=== PATIENT | female | born 1975 | race Caucasian/White ===

== ENCOUNTER 2017-01-30 12:07 | Inpatient (IN) | payer OTHER ==
[2017-01-30 18:50] VITALS: BMI 24.7
--- NOTE | 2017-01-30 20:48 | HP ---
CIWA Score - CIWA Score Nausea/Vomitin-Mild Nausea/No Vomiting Muscle Tremors: 3 Anxiety: 3 Agitation: 3 Paroxysmal Sweats: 1-Minimal Palms Moist Orientation: 3-Disoriented Date>2 days Tacttile Disturbances: 3-Moderate Itch/Numb/Burn Auditory Disturbances: 0-None Visual Disturbances: 0-None Headache: 2-Mild CIWA-Ar Total Score: 19 Admission ROS BHS - HPI Chief Complaint: WITHDRAWAL SX Allergies/Adverse Reactions: Allergies Allergy/AdvReac Type Severity Reaction Status Date / Time fish derived Allergy Verified 01/30/17 20:44 History of Present Illness: 41 YEARS OLD FEMALE WITH LONG HISTORY OF ALCOHOL NICOTINE DEPENDENCE, HAS ASTHMA HYPERTENSION AND DEPRESSION IS ADMITTED TO DETOX Exam Limitations: No Limitations - Ebola screening Have you traveled outside of the country in the last 21 days: No Have you had contact with anyone from an Ebola affected area: No Have you been sick,other than usual withdrawal symptoms: No Do you have a fever: No - Review of Systems Constitutional: Chills, Changes in sleep, Weight Stable EENT: reports: No Symptoms Reported Respiratory: reports: No Symptoms reported Cardiac: reports: No Symptoms Reported GI: reports: Nausea, Poor Fluid Intake, Indigestion, Abdominal cramping : reports: No Symptoms Reported Musculoskeletal: reports: Back Pain, Other (RIGHT GREAT TOE) Integumentary: reports: No Symptoms Reported Neuro: reports: Tremors Endocrine: reports: No Symptoms Reported Hematology: reports: No Symptoms Reported Psychiatric: reports: Judgement Intact, Depressed Other Systems: Reviewed and Negative Patient History - Patient Medical History Hx Anemia: No Hx Asthma: Yes Hx Chronic Obstructive Pulmonary Disease (COPD): No Hx Cancer: No Hx Cardiac Disorders: No Hx Congestive Heart Failure: No Hx Hypertension: Yes Hx Hypercholesterolemia: No HX Cerebrovascular Accident: No Hx Seizures: No Hx Dementia: No Hx Diabetes: No Hx Gastrointestinal Disorders: No Hx Liver Disease: No Hx Genitourinary Disorders: No Hx Sexually Transmitted Disorders: No Hx Renal Disease (ESRD): No Hx Thyroid Disease: No Hx Human Immunodeficiency Virus (HIV): No Hx Hepatitis C: No Hx Depression: Yes Hx Suicide Attempt: No Hx Bipolar Disorder: No Hx Schizophrenia: No - Patient Surgical History Past Surgical History: No - PPD History Previous Implant?: Yes Implanted On Prior R Admission?: No PPD to be Administered?: Yes - Reproductive History Patient is a Female of Child Bearing Age (11 -55 yrs old): Yes Last Menstrual Period: 01/19/17 Patient : No - Smoking Cessation Smoking history: Current every day smoker Have you smoked in the past 12 months: Yes Aproximately how many cigarettes per day: 10 Cigars Per Day: 0 Hx Chewing Tobacco Use: No Initiated information on smoking cessation: Yes 'Breaking Loose' booklet given: 01/30/17 - Substance & Tx. History Hx Alcohol Use: Yes Hx Substance Use: Yes Substance Use Type: Alcohol, Cocaine, Marijuana Hx Substance Use Treatment: Yes - Substances Abused Alcohol Route: Oral Frequency: Daily Amount used: 40OZX4 Age of first use: 19 Date of Last Use: 01/30/17 Family Disease History - Family Disease History Family Disease History: Other: Mother ( RENAL) Admission Physical Exam S - Vital Signs Vital Signs: Vital Signs - 24 hr 01/30/17 18:47 Temperature 97.2 F L Pulse Rate 79 Respiratory 20 Rate Blood Pressure 156/90 - Physical General Appearance: Yes: Nourished, Appropriately Dressed, Moderate Distress, Tremorous, Irritable, Sweating, Anxious HEENTM: Yes: Hearing grossly Normal, Normal ENT Inspection, Normocephalic, Normal Voice Respiratory: Yes: Chest Non-Tender, Lungs Clear, Normal Breath Sounds, No Respiratory Distress, No Accessory Muscle Use Neck: Yes: Supple, Trachea in good position Breast: Yes: Breasts Symetrical Cardiology: Yes: Regular Rhythm, Regular Rate, S1, S2 Abdominal: Yes: Non Tender, Soft Genitourinary: Yes: Within Normal Limits Back: Yes: Normal Inspection Musculoskeletal: Yes: full range of Motion, Gait Steady, Back pain Extremities: Yes: Normal Inspection, Normal Range of Motion, Non-Tender, Tremors Neurological: Yes: Alert, Motor Strength 5/5, Normal Response, Depressed Affect Integumentary: Yes: Warm Lymphatic: Yes: Within Normal Limits - Diagnostic (1) Alcohol dependence with uncomplicated withdrawal Status: Acute (2) Cocaine dependence, uncomplicated Status: Chronic (3) Cannabis dependence, uncomplicated Status: Chronic (4) Asthma Status: Chronic Qualifiers: Asthma severity: mild intermittent Asthma complication type: with status asthmaticus Qualified Code(s): J45.22 - Mild intermittent asthma with status asthmaticus (5) Hypertension Status: Chronic Qualifiers: Hypertension type: essential hypertension Qualified Code(s): I10 - Essential (primary) hypertension (6) Nicotine dependence Status: Acute Qualifiers: Nicotine product type: cigarettes Substance use status: in withdrawal Qualified Code(s): F17.213 - Nicotine dependence, cigarettes, with withdrawal (7) Depression (emotion) Status: Suspected Qualifiers: Depression Type: dysthymia Qualified Code(s): F34.1 - Dysthymic disorder (8) Abrasion, right great toe, sequela Status: Acute Qualifiers: Encounter type: subsequent encounter Qualified Code(s): S90.411D - Abrasion, right great toe, subsequent encounter Comment: AMADA Cleared for Admission S - Detox or Rehab S Level of Care: Medically Managed Detox Regimen/Protocol: Librium S Breath Alcohol Content Breath Alcohol Content: 0 Urine Pregancy Test - Result Urine Test Results: Negative- NO Line Present Urine Drug Screen - Results Drug Screen Negative: No Urine Drug Screen Results: THC-Marijuana, SUZY-Cocaine
[2017-01-30] MEDS ORDERED: P-EPHED 60MG/TRIPROLIDI 2.5MG TABLET PO PRN (20:53)
[2017-01-30] MEDS ORDERED: guaiFENesin/D-METHORPHAN HB 10 ML UNIT-DOSE CUPS PO PRN (20:53)
[2017-01-30] MEDS ORDERED: MAG HYDROX/AL HYDROX/SIMETH 30 ML UNIT-DOSE CUP PO PRN (20:53)
[2017-01-30] MEDS ORDERED: MAGNESIUM CITRATE 300 ML BOTTLE PO PRN (20:53)
[2017-01-30] MEDS ORDERED: chlordiazePOXIDE HCL 25 MG CAPSULE PO ONE (20:53)
[2017-01-30] MEDS ORDERED: MENTHOL/PHENOL 1 EACH UD MM PRN (20:53)
[2017-01-30] MEDS ORDERED: NICOTINE POLACRILEX 2 MG GUM BC PRN (20:53)
[2017-01-30] MEDS ORDERED: MAGNESIUM HYDROX 2400MG/30ML ORAL SUSPENSION 30 ML CUP PO PRN (20:53)
[2017-01-30] MEDS ORDERED: chlordiazePOXIDE HCL 25 MG CAPSULE PO PRN (20:53)
[2017-01-30] MEDS ORDERED: diphenhydrAMINE HCL 50 MG CAPSULE PO PRN (20:53)
[2017-01-30] MEDS ORDERED: LOPERAMIDE HCL 2 MG CAPSULE PO PRN (20:53)
[2017-01-30] MEDS ORDERED: hydrOXYzine PAMOATE 50 MG CAPSULE (FP) PO PRN (20:53)
[2017-01-30] MEDS ORDERED: ACETAMINOPHEN 325 MG TABLET (FP) PO PRN (20:53)
[2017-01-30] MEDS ORDERED: cloNIDine HCL 0.1 MG TABLET PO PRN (20:55)
[2017-01-30] MEDS ORDERED: THIAMINE HCL 100 MG TABLET (FP) PO SCH (22:00)
[2017-01-30] MEDS: chlordiazePOXIDE HCL 25 MG CAPSULE PO SCH (23:14)
[2017-01-30] MEDS: IBUPROFEN 400 MG TABLET (FP) PO PRN (23:18)
[2017-01-31] MEDS: chlordiazePOXIDE HCL 25 MG CAPSULE PO SCH ×3 (05:54→18:20)
[2017-01-31] MEDS: IBUPROFEN 400 MG TABLET (FP) PO PRN (05:56)
[2017-01-31 09:41] LABS: MCHC 33.9 g/dl (32.0-36.0); MEAN CELL VOLUME 91.4 fl (80-96); MEAN PLT VOLUME 10.3 fl (7.5-11.1); PLATELET COUNT 181 K/MM3 (134-434); RDW 13.1 % (11.6-15.6); WHITE BLOOD COUNT 6.8 K/mm3 (4.0-10.0)
[2017-01-31] MEDS ORDERED: NICOTINE 14 MG/24 HOURS TOPICAL PATCH TD SCH (10:00)
[2017-01-31] MEDS ORDERED: PRENATAL VITAMINS W/ FOLIC ACID TABLET (FP) PO SCH (10:00)
--- NOTE | 2017-01-31 10:06 | PN ---
S CIWA - CIWA Score Nausea/Vomitin Muscle Tremors: 3 Anxiety: 3 Agitation: 2 Paroxysmal Sweats: 1-Minimal Palms Moist Orientation: 0-Oriented Tacttile Disturbances: 1-Very Mild Itch/Numbness Auditory Disturbances: 1-Very Mild Visual Disturbances: 1-Very Mild Sensitivity Headache: 2-Mild CIWA-Ar Total Score: 17 BHS Progress Note (SOAP) Subjective: ALERT,IRRITABLE,ANXIOUS,INTERRUPTED SLEEP,TREMOR Objective: 01/31/17 10:04 Vital Signs Temperature 97.3 F L 01/31/17 06:08 Pulse Rate 100 H 01/31/17 06:08 Respiratory Rate 20 01/31/17 06:08 Blood Pressure 146/105 01/31/17 06:08 O2 Sat by Pulse Oximetry (%) EKG NSR,LVH,INTERTED T IN V2 NO CHEST PAIN,NO SOB,NO DIZZINESS Laboratory Last Values WBC 6.8 K/mm3 (4.0-10.0) 01/31/17 06:00 RBC 4.44 M/mm3 (3.60-5.2) 01/31/17 06:00 Hgb 13.8 GM/dL (10.7-15.3) 01/31/17 06:00 Hct 40.6 % (32.4-45.2) 01/31/17 06:00 MCV 91.4 fl (80-96) 01/31/17 06:00 MCHC 33.9 g/dl (32.0-36.0) 01/31/17 06:00 RDW 13.1 % (11.6-15.6) 01/31/17 06:00 Plt Count 181 K/MM3 (134-434) 01/31/17 06:00 MPV 10.3 fl (7.5-11.1) 01/31/17 06:00 LABS PENDING Assessment: 01/31/17 10:06 WITHDRAWAL SYMPTOM Plan: CONTINUE DETOX
[2017-01-31 10:07] LABS: URINE APPEARANCE SLCLOUDY; URINE BILIRUBIN NEGATIVE (NEGATIVE); URINE BLOOD NEGATIVE (NEGATIVE); URINE COLOR YELLOW; URINE GLUCOSE (UA) NEGATIVE (NEGATIVE); URINE KETONE NEGATIVE (NEGATIVE); URINE NITRITE NEGATIVE (NEGATIVE); URINE PROTEIN NEGATIVE (NEGATIVE); URINE UROBILINOGEN NEGATIVE E.U./dl (0.2-1.0)
[2017-01-31 10:58] LABS: URINE LEUK ESTERASE 2+ (NEGATIVE)
[2017-01-31 11:00] LABS: URINE MUCUS RARE; URINE RBC 8 /hpf (0-3); URINE WBC 34 /hpf (3-5)
[2017-01-31 11:06] LABS: ANION GAP 8 (8-16); CO2 26 mmol/L (21-32); GLUCOSE,RANDOM 118 mg/dL (74-106)
[2017-01-31 11:14] LABS: ALK PHOS 117 U/L (45-117); BILIRUBIN,TOTAL 0.4 mg/dL (0.2-1.0); COCKROFT - GAULT 85.4505; SGOT/AST 11 U/L (15-37); SGPT/ALT 16 U/L (12-78); TOT PROT 7.4 g/dl (6.4-8.2)
--- NOTE | 2017-01-31 13:09 | EKG ---
Test Reason : Blood Pressure : / mmHG Vent. Rate : 084 BPM Atrial Rate : 084 BPM P-R Int : 138 ms QRS Dur : 096 ms QT Int : 456 ms P-R-T Axes : 064 067 079 degrees QTc Int : 538 ms NORMAL SINUS RHYTHM POSSIBLE LEFT ATRIAL ENLARGEMENT LEFT VENTRICULAR HYPERTROPHY PROLONGED QT ABNORMAL ECG NO PREVIOUS ECGS AVAILABLE Confirmed by LINDA MARTIN, SANTIAGO ([id number]) on 01/31/2017 1:09:32 PM Referred By: Confirmed By:SANTIAGO MCKEON MD
[2017-01-31 13:53] VITALS: BP 142/79; PULSE 88; TEMP 98.1
--- NOTE | 2017-01-31 14:03 | CONSULT ---
[facility] Psychiatric Consult - Data Date of interview: 01/31/17 Admission source: [facility] Identifying data: First admission to [facility] for this 41 y/o female seeking detox treatment for alcohol,cocaine and marijuana dependence.Patient is single,a mother of four,homeless,unemployed and deprived of any source of income. Substance Abuse History: - Smoking Cessation. Smoking history: Current every day smoker. Have you smoked in the past 12 months: Yes. Aproximately how many cigarettes per day: 10. Cigars Per Day: 0. Hx Chewing Tobacco Use: No. Initiated information on smoking cessation: Yes. 'Breaking Loose' booklet given : 01/30/17. - Substance & Tx. History. Hx Alcohol Use: Yes. Hx Substance Use : Yes. Substance Use Type: Alcohol, Cocaine, Marijuana. Hx Substance Use Treatment: Yes. - Substances Abused. Alcohol. Route: Oral. Frequency: Daily. Amount used: 40OZX4. Age of first use: 19. Date of Last Use: . Confirmed by patient. Medical History: Bronchial asthma and hypertension. Psychiatric History: Patient denies. Physical/Sexual Abuse/Trauma History: No history. Additional Comment: Urine Drug Screen Results: THC-Marijuana, SUZY-Cocaine.Noted. Mental Status Exam - Mental Status Exam Alert and Oriented to: Time, Place, Person Cognitive Function: Good Patient Appearance: Well Groomed Mood: Withdrawn, Anxious, Apprehensive Affect: Constricted Patient Behavior: Fatigued, Appropriate, Cooperative Speech Pattern: Clear (bilingual) Voice Loudness: Normal Thought Process: Goal Oriented Thought Disorder: Not Present Hallucinations: Denies Suicidal Ideation: Denies Homicidal Ideation: Denies Insight/Judgement: Poor Sleep: Poorly, Difficulty falling asleep Appetite: Good Muscle strength/Tone: Normal Gait/Station: Normal Psychiatric Findings - Problem List ([place] 1, 2,3) (1) Alcohol dependence with uncomplicated withdrawal Current Visit: Yes Status: Acute (2) Cannabis dependence, uncomplicated Current Visit: Yes Status: Chronic (3) Cocaine dependence, uncomplicated Current Visit: Yes Status: Chronic (4) Nicotine dependence Current Visit: Yes Status: Acute Qualifiers: Nicotine product type: cigarettes Substance use status: in withdrawal Qualified Code(s): F17.213 - Nicotine dependence, cigarettes, with withdrawal (5) Substance induced mood disorder Current Visit: Yes Status: Acute (6) Asthma Current Visit: Yes Status: Chronic Qualifiers: Asthma severity: mild intermittent Asthma complication type: with status asthmaticus Qualified Code(s): J45.22 - Mild intermittent asthma with status asthmaticus (7) Hypertension Current Visit: Yes Status: Chronic Qualifiers: Hypertension type: essential hypertension Qualified Code(s): I10 - Essential (primary) hypertension (8) Insomnia Current Visit: Yes Status: Acute - Initial Treatment Plan Initial Treatment Plan: Psychoeducation.Detoxification.Insomnia is addressed with benadryl 50 mg po at bedtime.Brief discussion of side effects/ benefits.Patient agrees with this careplan.Observation.
--- NOTE | 2017-01-31 18:01 | DS ---
[facility] Detox Discharge Summary Admission Date: 01/30/17 Discharge Date: 01/31/17 - History Present History: Alcohol Dependence, Cannabis Dependence, Cocaine Dependence - Physical Exam Results Vital Signs: Vital Signs Temperature 98.1 F 01/31/17 13:52 Pulse Rate 88 01/31/17 13:52 Respiratory Rate 16 01/31/17 13:52 Blood Pressure 142/79 01/31/17 13:52 O2 Sat by Pulse Oximetry (%) - Treatment Hospital Course: Detox Protocol Followed - Medication Discharge Medications: Ambulatory Orders Albuterol Sulfate Inhaler - [Ventolin Hfa Inhaler -] 2 inh PO Q6H 01/30/17 - Diagnosis (1) Alcohol dependence with uncomplicated withdrawal Current Visit: Yes Status: Acute (2) Nicotine dependence Current Visit: Yes Status: Acute Qualifiers: Nicotine product type: cigarettes Substance use status: in withdrawal Qualified Code(s): F17.213 - Nicotine dependence, cigarettes, with withdrawal (3) Asthma Current Visit: Yes Status: Chronic Qualifiers: Asthma severity: mild intermittent Asthma complication type: with status asthmaticus Qualified Code(s): J45.22 - Mild intermittent asthma with status asthmaticus (4) Cannabis dependence, uncomplicated Current Visit: Yes Status: Chronic (5) Cocaine dependence, uncomplicated Current Visit: Yes Status: Chronic - AMA Did Patient Leave Against Medical Advice: Yes (want to leave unit )
[2017-01-31] MEDS ORDERED: chlordiazePOXIDE HCL 25 MG CAPSULE PO SCH (23:00)
[2017-02-01] MEDS ORDERED: chlordiazePOXIDE 5 MG CAPSULE PO SCH (23:00)
[2017-02-02] MEDS ORDERED: chlordiazePOXIDE HCL 10 MG CAPSULE PO SCH (23:00)
== END 2017-01-31 17:50 | disposition left against medical advice (07) | DRG 770 ==
LOC: YASAS 12:07 → Y6N 21:13
PROVIDERS: ADMIT Internal Medicine Addiction Medicine; ATTEND Internal Medicine Addiction Medicine
PROC: HZ2ZZZZ Detoxification Services for Substance Abuse Treatment (ICD-10-PCS; principal; 2017-01-30)
DX: F10.230 Alcohol dependence with withdrawal, uncomplicated (principal); F14.20 Cocaine dependence, uncomplicated; F12.20 Cannabis dependence, uncomplicated; F17.210 Nicotine dependence, cigarettes, uncomplicated; F19.24 Other psychoactive substance dependence with psychoactive substance-induced mood disorder; J45.22 Mild intermittent asthma with status asthmaticus; I10 Essential (primary) hypertension; G47.00 Insomnia, unspecified; S90.411D Abrasion, right great toe, subsequent encounter; X58.XXXD Exposure to other specified factors, subsequent encounter
CPT/HCPCS: 36415; 80053; 81003; 81015; 85027; 86593; 93005; 93010

== ENCOUNTER 2018-02-26 15:12 | Inpatient (IN) | payer OTHER ==
[2018-02-26 17:01] VITALS: BMI 25.3
--- NOTE | 2018-02-26 19:45 | HP ---
CIWA Score - CIWA Score Nausea/Vomitin-No Nausea/No Vomiting Muscle Tremors: 4-Moderate,w/Arms Extend Anxiety: 3 Agitation: 4-Moderately Restless Paroxysmal Sweats: 4-Forehead w/Sweat Beads Orientation: 0-Oriented Tacttile Disturbances: 1-Very Mild Itch/Numbness (On arms and body since starting withdrawal) Auditory Disturbances: 0-None Visual Disturbances: 0-None Headache: 0-None Present CIWA-Ar Total Score: 16 Admission ROS S - HPI Chief Complaint: Here for alcohol and cocaine withdrawal. Allergies/Adverse Reactions: Allergies Allergy/AdvReac Type Severity Reaction Status Date / Time fish derived Allergy Verified 01/30/17 20:44 History of Present Illness: Started drinking alcohol at age 19 and now drinks 1 pint per day. Started crack/ cocaine use at age 36. Smokes 1/2 to 1 PPD - started at age 19. Hx. asthma. Occ blood pressure increases and takes hydrochlorothiazide as needed. Denies other health problems. Hx.marijuana use but not recently. Had one detox attempt in past but stayed less than 24 hours. - Ebola screening Have you traveled outside of the country in the last 21 days: No Have you had contact with anyone from an Ebola affected area: No Have you been sick,other than usual withdrawal symptoms: No Do you have a fever: No - Review of Systems Constitutional: Diaphoresis, Changes in sleep (Difficulty falling and staying asleep x 3 years.) EENT: reports: No Symptoms Reported Respiratory: reports: Wheezing (Hx. asthma. Had wheezing this am. Left pump at home.) Cardiac: reports: Other (Occ. elevated blood pressure) GI: reports: No Symptoms Reported : reports: No Symptoms Reported Musculoskeletal: reports: Back Pain (Occ back pain r/t sciatica.) Integumentary: reports: No Symptoms Reported Neuro: reports: No Symptoms reported Endocrine: reports: No Symptoms Reported Hematology: reports: No Symptoms Reported Psychiatric: reports: Orientated x3, Agitated (r/t withdrawal), Anxious (r/t withdrawal) Patient History - Patient Medical History Hx Anemia: No Hx Asthma: Yes (triggered by cold weather, hot weather, humidity, duct) Hx Chronic Obstructive Pulmonary Disease (COPD): No Hx Cancer: No Hx Cardiac Disorders: No Hx Congestive Heart Failure: No Hx Hypertension: Yes (rx'd w/ HCTZ) Hx Hypercholesterolemia: No HX Cerebrovascular Accident: No Hx Seizures: No Hx Dementia: No Hx Diabetes: No Hx Gastrointestinal Disorders: No Hx Liver Disease: No Hx Genitourinary Disorders: No Hx Sexually Transmitted Disorders: No Hx Renal Disease (ESRD): No Hx Thyroid Disease: No Hx Human Immunodeficiency Virus (HIV): No Hx Hepatitis C: No Hx Depression: No (Denies depression. Denies suicide/violent ideation.) Hx Suicide Attempt: No Hx Bipolar Disorder: No Hx Schizophrenia: No - Patient Surgical History Past Surgical History: No Hx Neurologic Surgery: No Hx Cataract Extraction: No Hx Cardiac Surgery: No Hx Lung Surgery: No Hx Breast Surgery: No Hx Breast Biopsy: No Hx Abdominal Surgery: No Hx Appendectomy: No Hx Cholecystectomy: No Hx Genitourinary Surgery: No Hx Section: No Hx Orthopedic Surgery: No Anesthesia Reaction: No - PPD History Previous Implant?: Yes Documented Results: Negative w/o proof Date: 02/01/17 PPD to be Administered?: Yes - Reproductive History Patient is a Female of Child Bearing Age (11 -55 yrs old): Yes Last Menstrual Period: 01/19/18 (Sexually active) Patient : No - Smoking Cessation Smoking history: Current every day smoker Have you smoked in the past 12 months: Yes Aproximately how many cigarettes per day: 10 Cigars Per Day: 0 Hx Chewing Tobacco Use: No Initiated information on smoking cessation: Yes 'Breaking Loose' booklet given: 02/26/18 - Substance & Tx. History Hx Alcohol Use: Yes Hx Substance Use: Yes Substance Use Type: Alcohol, Cocaine Hx Substance Use Treatment: Yes (Detox admission for less than 24 hours) - Substances Abused Alcohol Route: Oral Frequency: Daily Amount used: LIQUOR- 1 PINT Age of first use: 19 Date of Last Use: 02/26/18 (middle of night) Crack Route: Smoking Frequency: Daily Amount used: $150 Age of first use: 36 Date of Last Use: 02/26/18 (middle of night) Family Disease History - Family Disease History Family Disease History: Other: Mother ( RENAL) Admission Physical Exam BHS - Vital Signs Vital Signs: Vital Signs - 24 hr 02/26/18 16:58 Temperature 98.5 F Pulse Rate 83 Respiratory 18 Rate Blood Pressure 157/95 - Physical General Appearance: Yes: Moderate Distress, Tremorous, Sweating, Anxious HEENTM: Yes: EOMI, Hearing grossly Normal, Normal Voice, ZOE, Other ( Perforated nasal septum.) Respiratory: Yes: Lungs Clear, Normal Breath Sounds Neck: Yes: No masses,lesions,Nodules Breast: Yes: Breast Exam Deferred Cardiology: Yes: Regular Rhythm, S1, S2, Tachycardia Abdominal: Yes: Normal Bowel Sounds, Non Tender, Soft Genitourinary: Yes: Within Normal Limits Back: Yes: Normal Inspection Musculoskeletal: Yes: full range of Motion, Gait Steady Extremities: Yes: Normal Capillary Refill, Normal Inspection, Normal Range of Motion Neurological: Yes: Fully Oriented, Alert, Motor Strength 5/5 Integumentary: Yes: Normal Color, Dry (Dry skin and mucous membranes.) - Diagnostic (1) Alcohol dependence with uncomplicated withdrawal Current Visit: Yes Status: Acute (2) Insomnia Current Visit: Yes Status: Chronic Qualifiers: Insomnia type: unspecified Qualified Code(s): G47.00 - Insomnia, unspecified (3) Nicotine dependence Current Visit: Yes Status: Acute Qualifiers: Nicotine product type: cigarettes Substance use status: in withdrawal Qualified Code(s): F17.213 - Nicotine dependence, cigarettes, with withdrawal (4) Asthma Current Visit: Yes Status: Chronic Qualifiers: Asthma severity: unspecified severity Asthma complication type: uncomplicated (5) Cannabis dependence, uncomplicated Current Visit: No Status: Chronic (6) Cocaine dependence, uncomplicated Current Visit: Yes Status: Acute (7) Hypertension Current Visit: Yes Status: Chronic Qualifiers: Hypertension type: unspecified Qualified Code(s): I10 - Essential (primary ) hypertension (8) Dehydration Current Visit: Yes Status: Acute Cleared for Admission [facility] - Detox or Rehab [facility] Level of Care: Medically Managed Detox Regimen/Protocol: Librium [facility] Breath Alcohol Content Breath Alcohol Content: 0 Urine Pregancy Test - Result Urine Test Results: Negative- NO Line Present Urine Drug Screen - Results Drug Screen Negative: No Urine Drug Screen Results: SUZY-Cocaine
[2018-02-26] MEDS ORDERED: guaiFENesin/D-METHORPHAN HB 10 ML UNIT-DOSE CUPS PO PRN (19:59)
[2018-02-26] MEDS ORDERED: NICOTINE POLACRILEX 2 MG GUM BUC PRN (19:59)
[2018-02-26] MEDS ORDERED: MAGNESIUM CITRATE 300 ML BOTTLE PO PRN (19:59)
[2018-02-26] MEDS ORDERED: P-EPHED 60MG/TRIPROLIDI 2.5MG TABLET PO PRN (19:59)
[2018-02-26] MEDS ORDERED: MAGNESIUM HYDROX 2400MG/30ML ORAL SUSPENSION 30 ML CUP PO PRN (19:59)
[2018-02-26] MEDS ORDERED: MAG HYDROX/AL HYDROX/SIMETH 30 ML UNIT-DOSE CUP PO PRN (19:59)
[2018-02-26] MEDS ORDERED: MENTHOL/PHENOL 1 EACH UD MM PRN (19:59)
[2018-02-26] MEDS ORDERED: hydrOXYzine PAMOATE 50 MG CAPSULE (FP) PO PRN (19:59)
[2018-02-26] MEDS ORDERED: LOPERAMIDE HCL 2 MG CAPSULE PO PRN (19:59)
[2018-02-26] MEDS ORDERED: ACETAMINOPHEN 325 MG TABLET (FP) PO PRN (20:13)
[2018-02-26] MEDS ORDERED: chlordiazePOXIDE HCL 25 MG CAPSULE PO PRN (20:14)
[2018-02-26] MEDS ORDERED: ALBUTEROL SO4 18 GM HFA INHALER IH SCH (20:15)
[2018-02-26] MEDS ORDERED: ALBUTEROL SO4 18 GM HFA INHALER IH PRN (20:18)
[2018-02-26] MEDS ORDERED: chlordiazePOXIDE HCL 25 MG CAPSULE PO ONE (20:45)
[2018-02-26] MEDS ORDERED: MELATONIN 5 MG TABLETS PO PRN (22:00)
[2018-02-26] MEDS: chlordiazePOXIDE HCL 25 MG CAPSULE PO SCH (22:32)
[2018-02-26] MEDS: THIAMINE HCL 100 MG TABLET (FP) PO SCH (22:32)
[2018-02-27 00:04] LABS: URINE APPEARANCE CLEAR; URINE BILIRUBIN NEGATIVE (<2.0 mg/dL); URINE COLOR YELLOW; URINE GLUCOSE (UA) NEGATIVE (NEGATIVE); URINE KETONE NEGATIVE (NEGATIVE); URINE LEUK ESTERASE TRACE (NEGATIVE); URINE NITRITE NEGATIVE (NEGATIVE); URINE PROTEIN NEGATIVE (NEGATIVE)
[2018-02-27 00:42] LABS: EPI CELLS FEW /HPF (FEW); URINE MUCUS RARE
[2018-02-27] MEDS: chlordiazePOXIDE HCL 25 MG CAPSULE PO SCH ×4 (06:02→22:22)
[2018-02-27 10:19] LABS: HEMATOCRIT 36.4 % (32.4-45.2); HEMOGLOBIN 12.5 GM/dL (10.7-15.3); MCH 31.3 pg (25.7-33.7); MCHC 34.3 g/dl (32.0-36.0); MEAN CELL VOLUME 91.1 fl (80-96); PLATELET COUNT 179 K/MM3 (134-434); RDW 13.1 % (11.6-15.6); WHITE BLOOD COUNT 5.2 K/mm3 (4.0-10.0)
[2018-02-27 10:26] LABS: CHLORIDE 111 mmol/L (98-107); SODIUM 144 mmol/L (136-145)
[2018-02-27] MEDS: HYDROCHLOROTHIAZIDE 12.5 MG CAPSULE (FP) PO SCH (10:34)
[2018-02-27] MEDS: PRENATAL VITAMINS W/ FOLIC ACID TABLET (FP) PO SCH (10:34)
[2018-02-27] MEDS: NICOTINE 21 MG/24 HOURS TOPICAL PATCH TD SCH (10:35)
[2018-02-27 10:49] LABS: ALBUMIN 3.5 g/dl (3.4-5.0); ALK PHOS 123 U/L (45-117); ANION GAP 10 (8-16); BILIRUBIN,TOTAL 0.2 mg/dL (0.2-1.0); BLOOD UREA NITROGEN 19 mg/dL (7-18); CALCIUM 8.2 mg/dL (8.5-10.1); CO2 23 mmol/L (21-32); GLUCOSE,RANDOM 107 mg/dL (74-106); SGOT/AST 7 U/L (15-37); SGPT/ALT 11 U/L (12-78); TOT PROT 6.3 g/dl (6.4-8.2)
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
--- NOTE | 2018-02-27 11:59 | EKG ---
Test Reason : Blood Pressure : / mmHG Vent. Rate : 086 BPM Atrial Rate : 086 BPM P-R Int : 140 ms QRS Dur : 096 ms QT Int : 424 ms P-R-T Axes : 049 057 058 degrees QTc Int : 507 ms NORMAL SINUS RHYTHM VOLTAGE CRITERIA FOR LEFT VENTRICULAR HYPERTROPHY PROLONGED QT ABNORMAL ECG WHEN COMPARED WITH ECG OF 26-FEB-2018 21:18, NO SIGNIFICANT CHANGE WAS FOUND Confirmed by MD RYAN, LEMUEL ([id number]) on 02/27/2018 11:59:22 AM Referred By: Confirmed By:LEMUEL DAVIS MD
--- NOTE | 2018-02-27 12:01 | EKG ---
Test Reason : Blood Pressure : / mmHG Vent. Rate : 076 BPM Atrial Rate : 076 BPM P-R Int : 140 ms QRS Dur : 092 ms QT Int : 464 ms P-R-T Axes : 051 060 069 degrees QTc Int : 522 ms NORMAL SINUS RHYTHM PROLONGED QT ABNORMAL ECG Confirmed by MD RYAN, LEMUEL ([id number]) on 02/27/2018 12:00:35 PM Referred By: Confirmed By:LEMUEL DAVIS MD
--- NOTE | 2018-02-27 12:16 | PN ---
[facility] CIWA - CIWA Score Nausea/Vomitin-Mild Nausea/No Vomiting Muscle Tremors: 4-Moderate,w/Arms Extend Anxiety: 4-Mod. Anxious/Guarded Agitation: 4-Moderately Restless Paroxysmal Sweats: 1-Minimal Palms Moist Orientation: 0-Oriented Tacttile Disturbances: 0-None Auditory Disturbances: 0-None Visual Disturbances: 0-None Headache: 0-None Present CIWA-Ar Total Score: 14 [facility] Progress Note (SOAP) Subjective: sweat tremor trouble sleep at night anxiety restlessness Objective: 02/27/18 12:15 Vital Signs Temperature 98.1 F 02/27/18 09:07 Pulse Rate 99 H 02/27/18 09:07 Respiratory Rate 20 02/27/18 09:07 Blood Pressure 157/80 02/27/18 09:07 O2 Sat by Pulse Oximetry (%) Laboratory Last Values WBC 5.2 K/mm3 (4.0-10.0) 02/27/18 07:00 RBC 4.00 M/mm3 (3.60-5.2) 02/27/18 07:00 Hgb 12.5 GM/dL (10.7-15.3) 02/27/18 07:00 Hct 36.4 % (32.4-45.2) 02/27/18 07:00 MCV 91.1 fl (80-96) 02/27/18 07:00 MCH 31.3 pg (25.7-33.7) 02/27/18 07:00 MCHC 34.3 g/dl (32.0-36.0) 02/27/18 07:00 RDW 13.1 % (11.6-15.6) 02/27/18 07:00 Plt Count 179 K/MM3 (134-434) 02/27/18 07:00 MPV 9.0 fl (7.5-11.1) D 02/27/18 07:00 Sodium 144 mmol/L (136-145) 02/27/18 07:00 Potassium 4.0 mmol/L (3.5-5.1) 02/27/18 07:00 Chloride 111 mmol/L (98-107) H 02/27/18 07:00 Carbon Dioxide 23 mmol/L (21-32) 02/27/18 07:00 Anion Gap 10 (8-16) 02/27/18 07:00 BUN 19 mg/dL (7-18) H 02/27/18 07:00 Creatinine 1.0 mg/dL (0.55-1.02) 02/27/18 07:00 Creat Clearance w eGFR > 60 (>60) 02/27/18 07:00 Random Glucose 107 mg/dL (74-106) H 02/27/18 07:00 Calcium 8.2 mg/dL (8.5-10.1) L 02/27/18 07:00 Total Bilirubin 0.2 mg/dL (0.2-1.0) D 02/27/18 07:00 AST 7 U/L (15-37) L 02/27/18 07:00 ALT 11 U/L (12-78) L 02/27/18 07:00 Alkaline Phosphatase 123 U/L (45-117) H 02/27/18 07:00 Total Protein 6.3 g/dl (6.4-8.2) L 02/27/18 07:00 Albumin 3.5 g/dl (3.4-5.0) 02/27/18 07:00 Urine Color Yellow 02/26/18 23:50 Urine Appearance Clear 02/26/18 23:50 Urine pH 6.0 (5.0-8.0) 02/26/18 23:50 Ur Specific [place] 1.028 (1.001-1.035) 02/26/18 23:50 Urine Protein Negative (NEGATIVE) 02/26/18 23:50 Urine Glucose (UA) Negative (NEGATIVE) 02/26/18 23:50 Urine Ketones Negative (NEGATIVE) 02/26/18 23:50 Urine Blood Negative (NEGATIVE) 02/26/18 23:50 Urine Nitrite Negative (NEGATIVE) 02/26/18 23:50 Urine Bilirubin Negative (<2.0 mg/dL) 02/26/18 23:50 Urine Urobilinogen 2.0 mg/dL (0.2-1.0) H 02/26/18 23:50 Ur Leukocyte Esterase Trace (NEGATIVE) 02/26/18 23:50 Urine WBC (Auto) 9 /hpf (3-5) 02/26/18 23:50 Urine RBC (Auto) 5 /hpf (0-3) 02/26/18 23:50 Ur Epithelial Cells Few /HPF (FEW) 02/26/18 23:50 Urine Mucus Rare 02/26/18 23:50 RPR Titer Nonreactive (NONREACTIVE) 02/27/18 07:00 lab noted Assessment: 02/27/18 12:16 withdrawal sx Plan: continue detox
[2018-02-27] MEDS: THIAMINE HCL 100 MG TABLET (FP) PO SCH (22:22)
[2018-02-27] MEDS: amLODIPine BESYLATE 5 MG TABLET (FP) PO SCH (22:22)
[2018-02-28] MEDS: chlordiazePOXIDE HCL 25 MG CAPSULE PO SCH ×3 (05:42→17:26)
[2018-02-28] MEDS: PRENATAL VITAMINS W/ FOLIC ACID TABLET (FP) PO SCH (11:08)
[2018-02-28] MEDS: amLODIPine BESYLATE 5 MG TABLET (FP) PO SCH ×2 (11:08→22:44)
[2018-02-28] MEDS: HYDROCHLOROTHIAZIDE 12.5 MG CAPSULE (FP) PO SCH (11:08)
[2018-02-28] MEDS: NICOTINE 21 MG/24 HOURS TOPICAL PATCH TD SCH (11:08)
--- NOTE | 2018-02-28 12:29 | PN ---
S CIWA - CIWA Score Nausea/Vomitin-Mild Nausea/No Vomiting Muscle Tremors: 4-Moderate,w/Arms Extend Anxiety: 3 Agitation: 3 Paroxysmal Sweats: 1-Minimal Palms Moist Orientation: 0-Oriented Tacttile Disturbances: 0-None Auditory Disturbances: 0-None Visual Disturbances: 0-None Headache: 0-None Present CIWA-Ar Total Score: 12 [facility] Progress Note (SOAP) Subjective: sweat tremor restlessness cold chill hot Objective: 02/28/18 12:29 Vital Signs Temperature 98.1 F 02/28/18 10:29 Pulse Rate 95 H 02/28/18 10:29 Respiratory Rate 18 02/28/18 10:29 Blood Pressure 128/71 02/28/18 10:29 O2 Sat by Pulse Oximetry (%) Laboratory Last Values WBC 5.2 K/mm3 (4.0-10.0) 02/27/18 07:00 RBC 4.00 M/mm3 (3.60-5.2) 02/27/18 07:00 Hgb 12.5 GM/dL (10.7-15.3) 02/27/18 07:00 Hct 36.4 % (32.4-45.2) 02/27/18 07:00 MCV 91.1 fl (80-96) 02/27/18 07:00 MCH 31.3 pg (25.7-33.7) 02/27/18 07:00 MCHC 34.3 g/dl (32.0-36.0) 02/27/18 07:00 RDW 13.1 % (11.6-15.6) 02/27/18 07:00 Plt Count 179 K/MM3 (134-434) 02/27/18 07:00 MPV 9.0 fl (7.5-11.1) D 02/27/18 07:00 Sodium 144 mmol/L (136-145) 02/27/18 07:00 Potassium 4.0 mmol/L (3.5-5.1) 02/27/18 07:00 Chloride 111 mmol/L (98-107) H 02/27/18 07:00 Carbon Dioxide 23 mmol/L (21-32) 02/27/18 07:00 Anion Gap 10 (8-16) 02/27/18 07:00 BUN 19 mg/dL (7-18) H 02/27/18 07:00 Creatinine 1.0 mg/dL (0.55-1.02) 02/27/18 07:00 Creat Clearance w eGFR > 60 (>60) 02/27/18 07:00 Random Glucose 107 mg/dL (74-106) H 02/27/18 07:00 Calcium 8.2 mg/dL (8.5-10.1) L 02/27/18 07:00 Total Bilirubin 0.2 mg/dL (0.2-1.0) D 02/27/18 07:00 AST 7 U/L (15-37) L 02/27/18 07:00 ALT 11 U/L (12-78) L 02/27/18 07:00 Alkaline Phosphatase 123 U/L (45-117) H 02/27/18 07:00 Total Protein 6.3 g/dl (6.4-8.2) L 02/27/18 07:00 Albumin 3.5 g/dl (3.4-5.0) 02/27/18 07:00 Urine Color Yellow 02/26/18 23:50 Urine Appearance Clear 02/26/18 23:50 Urine pH 6.0 (5.0-8.0) 02/26/18 23:50 Ur Specific [place] 1.028 (1.001-1.035) 02/26/18 23:50 Urine Protein Negative (NEGATIVE) 02/26/18 23:50 Urine Glucose (UA) Negative (NEGATIVE) 02/26/18 23:50 Urine Ketones Negative (NEGATIVE) 02/26/18 23:50 Urine Blood Negative (NEGATIVE) 02/26/18 23:50 Urine Nitrite Negative (NEGATIVE) 02/26/18 23:50 Urine Bilirubin Negative (<2.0 mg/dL) 02/26/18 23:50 Urine Urobilinogen 2.0 mg/dL (0.2-1.0) H 02/26/18 23:50 Ur Leukocyte Esterase Trace (NEGATIVE) 02/26/18 23:50 Urine WBC (Auto) 9 /hpf (3-5) 02/26/18 23:50 Urine RBC (Auto) 5 /hpf (0-3) 02/26/18 23:50 Ur Epithelial Cells Few /HPF (FEW) 02/26/18 23:50 Urine Mucus Rare 02/26/18 23:50 RPR Titer Nonreactive (NONREACTIVE) 02/27/18 07:00 lab noted Assessment: 02/28/18 12:30 withdrawal ax Plan: continue detox
[2018-02-28] MEDS: chlordiazePOXIDE 5 MG CAPSULE PO SCH (22:44)
[2018-02-28] MEDS: THIAMINE HCL 100 MG TABLET (FP) PO SCH (22:44)
[2018-02-28] MEDS ORDERED: diphenhydrAMINE HCL 25 MG CAPSULE (FP) PO ONE (22:49)
[2018-02-28] MEDS: diphenhydrAMINE HCL 50 MG CAPSULE PO PRN (22:50)
[2018-03-01] MEDS: chlordiazePOXIDE 5 MG CAPSULE PO SCH ×3 (05:59→18:11)
[2018-03-01] MEDS: PRENATAL VITAMINS W/ FOLIC ACID TABLET (FP) PO SCH (10:56)
[2018-03-01] MEDS: HYDROCHLOROTHIAZIDE 12.5 MG CAPSULE (FP) PO SCH (10:56)
[2018-03-01] MEDS: NICOTINE 21 MG/24 HOURS TOPICAL PATCH TD SCH (10:57)
[2018-03-01] MEDS: amLODIPine BESYLATE 5 MG TABLET (FP) PO SCH ×2 (10:57→22:30)
[2018-03-01] MEDS ORDERED: ONDANSETRON *ODT* 4 MG TABLET SL ONE (11:03)
--- NOTE | 2018-03-01 13:11 | PN ---
[facility] Progress Note (SOAP) Subjective: feeling better less sweat no tremor sleep better at night social with peers in day room Objective: 03/01/18 13:10 Vital Signs Temperature 97.9 F 03/01/18 10:29 Pulse Rate 87 03/01/18 10:29 Respiratory Rate 18 03/01/18 10:29 Blood Pressure 132/68 03/01/18 10:29 O2 Sat by Pulse Oximetry (%) Laboratory Last Values WBC 5.2 K/mm3 (4.0-10.0) 02/27/18 07:00 RBC 4.00 M/mm3 (3.60-5.2) 02/27/18 07:00 Hgb 12.5 GM/dL (10.7-15.3) 02/27/18 07:00 Hct 36.4 % (32.4-45.2) 02/27/18 07:00 MCV 91.1 fl (80-96) 02/27/18 07:00 MCH 31.3 pg (25.7-33.7) 02/27/18 07:00 MCHC 34.3 g/dl (32.0-36.0) 02/27/18 07:00 RDW 13.1 % (11.6-15.6) 02/27/18 07:00 Plt Count 179 K/MM3 (134-434) 02/27/18 07:00 MPV 9.0 fl (7.5-11.1) D 02/27/18 07:00 Sodium 144 mmol/L (136-145) 02/27/18 07:00 Potassium 4.0 mmol/L (3.5-5.1) 02/27/18 07:00 Chloride 111 mmol/L (98-107) H 02/27/18 07:00 Carbon Dioxide 23 mmol/L (21-32) 02/27/18 07:00 Anion Gap 10 (8-16) 02/27/18 07:00 BUN 19 mg/dL (7-18) H 02/27/18 07:00 Creatinine 1.0 mg/dL (0.55-1.02) 02/27/18 07:00 Creat Clearance w eGFR > 60 (>60) 02/27/18 07:00 Random Glucose 107 mg/dL (74-106) H 02/27/18 07:00 Calcium 8.2 mg/dL (8.5-10.1) L 02/27/18 07:00 Total Bilirubin 0.2 mg/dL (0.2-1.0) D 02/27/18 07:00 AST 7 U/L (15-37) L 02/27/18 07:00 ALT 11 U/L (12-78) L 02/27/18 07:00 Alkaline Phosphatase 123 U/L (45-117) H 02/27/18 07:00 Total Protein 6.3 g/dl (6.4-8.2) L 02/27/18 07:00 Albumin 3.5 g/dl (3.4-5.0) 02/27/18 07:00 Urine Color Yellow 02/26/18 23:50 Urine Appearance Clear 02/26/18 23:50 Urine pH 6.0 (5.0-8.0) 02/26/18 23:50 Ur Specific [place] 1.028 (1.001-1.035) 02/26/18 23:50 Urine Protein Negative (NEGATIVE) 02/26/18 23:50 Urine Glucose (UA) Negative (NEGATIVE) 02/26/18 23:50 Urine Ketones Negative (NEGATIVE) 02/26/18 23:50 Urine Blood Negative (NEGATIVE) 02/26/18 23:50 Urine Nitrite Negative (NEGATIVE) 02/26/18 23:50 Urine Bilirubin Negative (<2.0 mg/dL) 02/26/18 23:50 Urine Urobilinogen 2.0 mg/dL (0.2-1.0) H 02/26/18 23:50 Ur Leukocyte Esterase Trace (NEGATIVE) 02/26/18 23:50 Urine WBC (Auto) 9 /hpf (3-5) 02/26/18 23:50 Urine RBC (Auto) 5 /hpf (0-3) 02/26/18 23:50 Ur Epithelial Cells Few /HPF (FEW) 02/26/18 23:50 Urine Mucus Rare 02/26/18 23:50 RPR Titer Nonreactive (NONREACTIVE) 02/27/18 07:00 lab noted Assessment: 03/01/18 13:10 mild withdrawal sx Plan: medically supervised detox
[2018-03-01] MEDS: IBUPROFEN 400 MG TABLET (FP) PO PRN (18:47)
[2018-03-01] MEDS: THIAMINE HCL 100 MG TABLET (FP) PO SCH (22:30)
[2018-03-01] MEDS: chlordiazePOXIDE HCL 10 MG CAPSULE PO SCH (22:31)
[2018-03-01] MEDS: diphenhydrAMINE HCL 50 MG CAPSULE PO PRN (22:32)
[2018-03-01] MEDS ORDERED: diphenhydrAMINE HCL 25 MG CAPSULE (FP) PO ONE (22:32)
[2018-03-02] MEDS: chlordiazePOXIDE HCL 10 MG CAPSULE PO SCH ×2 (06:00→10:51)
[2018-03-02] MEDS: IBUPROFEN 400 MG TABLET (FP) PO PRN (06:23)
--- NOTE | 2018-03-02 09:24 | DS ---
[facility] Detox Discharge Summary Admission Date: 02/26/18 Discharge Date: 03/02/18 - History Present History: Alcohol Dependence Additional Comments: 42 years old female admitted on 02/26/18 for alcohol withdrawal sx completed alcohol detox regimen tolerated well denies alcohol withdrawal sx alert oriented x 3 no acute distress agrees aftercare [facility] recovery brief motivational intervention x 5" patient appeared to be motivated to maintain sober - Physical Exam Results Vital Signs: Vital Signs Temperature 97.7 F 03/02/18 06:23 Pulse Rate 108 H 03/02/18 06:23 Respiratory Rate 17 03/02/18 06:23 Blood Pressure 115/72 03/02/18 06:23 O2 Sat by Pulse Oximetry (%) Pertinent Admission Physical Exam Findings: withdrawal sx Vital Signs Temperature 97.7 F 03/02/18 06:23 Pulse Rate 108 H 03/02/18 06:23 Respiratory Rate 17 03/02/18 06:23 Blood Pressure 115/72 03/02/18 06:23 O2 Sat by Pulse Oximetry (%) Laboratory Last Values WBC 5.2 K/mm3 (4.0-10.0) 02/27/18 07:00 RBC 4.00 M/mm3 (3.60-5.2) 02/27/18 07:00 Hgb 12.5 GM/dL (10.7-15.3) 02/27/18 07:00 Hct 36.4 % (32.4-45.2) 02/27/18 07:00 MCV 91.1 fl (80-96) 02/27/18 07:00 MCH 31.3 pg (25.7-33.7) 02/27/18 07:00 MCHC 34.3 g/dl (32.0-36.0) 02/27/18 07:00 RDW 13.1 % (11.6-15.6) 02/27/18 07:00 Plt Count 179 K/MM3 (134-434) 02/27/18 07:00 MPV 9.0 fl (7.5-11.1) D 02/27/18 07:00 Sodium 144 mmol/L (136-145) 02/27/18 07:00 Potassium 4.0 mmol/L (3.5-5.1) 02/27/18 07:00 Chloride 111 mmol/L (98-107) H 02/27/18 07:00 Carbon Dioxide 23 mmol/L (21-32) 02/27/18 07:00 Anion Gap 10 (8-16) 02/27/18 07:00 BUN 19 mg/dL (7-18) H 02/27/18 07:00 Creatinine 1.0 mg/dL (0.55-1.02) 02/27/18 07:00 Creat Clearance w eGFR > 60 (>60) 02/27/18 07:00 Random Glucose 107 mg/dL (74-106) H 02/27/18 07:00 Calcium 8.2 mg/dL (8.5-10.1) L 02/27/18 07:00 Total Bilirubin 0.2 mg/dL (0.2-1.0) D 02/27/18 07:00 AST 7 U/L (15-37) L 02/27/18 07:00 ALT 11 U/L (12-78) L 02/27/18 07:00 Alkaline Phosphatase 123 U/L (45-117) H 02/27/18 07:00 Total Protein 6.3 g/dl (6.4-8.2) L 02/27/18 07:00 Albumin 3.5 g/dl (3.4-5.0) 02/27/18 07:00 Urine Color Yellow 02/26/18 23:50 Urine Appearance Clear 02/26/18 23:50 Urine pH 6.0 (5.0-8.0) 02/26/18 23:50 Ur Specific [place] 1.028 (1.001-1.035) 02/26/18 23:50 Urine Protein Negative (NEGATIVE) 02/26/18 23:50 Urine Glucose (UA) Negative (NEGATIVE) 02/26/18 23:50 Urine Ketones Negative (NEGATIVE) 02/26/18 23:50 Urine Blood Negative (NEGATIVE) 02/26/18 23:50 Urine Nitrite Negative (NEGATIVE) 02/26/18 23:50 Urine Bilirubin Negative (<2.0 mg/dL) 02/26/18 23:50 Urine Urobilinogen 2.0 mg/dL (0.2-1.0) H 02/26/18 23:50 Ur Leukocyte Esterase Trace (NEGATIVE) 02/26/18 23:50 Urine WBC (Auto) 9 /hpf (3-5) 02/26/18 23:50 Urine RBC (Auto) 5 /hpf (0-3) 02/26/18 23:50 Ur Epithelial Cells Few /HPF (FEW) 02/26/18 23:50 Urine Mucus Rare 02/26/18 23:50 RPR Titer Nonreactive (NONREACTIVE) 02/27/18 07:00 lab noted - Treatment Hospital Course: Detox Protocol Followed, Detoxed Safely, Responded well, Discharged Condition Good, Rehab Referral Accepted Patient has Accepted a Rehab Referral [facility] - Medication Discharge Medications: Ambulatory Orders Albuterol Sulfate Inhaler - [Ventolin HFA Inhaler -] 2 inh PO Q6H 01/30/17 - Diagnosis (1) Alcohol dependence with uncomplicated withdrawal Current Visit: Yes Status: Acute (2) Asthma Current Visit: Yes Status: Chronic Qualifiers: Asthma severity: mild Asthma persistence: intermittent Asthma complication type: uncomplicated Qualified Code(s): J45.20 - Mild intermittent asthma, uncomplicated (3) Hypertension Current Visit: Yes Status: Chronic Qualifiers: Hypertension type: essential hypertension Qualified Code(s): I10 - Essential (primary) hypertension (4) Nicotine dependence Current Visit: Yes Status: Acute Qualifiers: Nicotine product type: cigarettes Substance use status: in withdrawal Qualified Code(s): F17.213 - Nicotine dependence, cigarettes, with withdrawal (5) Depression (emotion) Current Visit: Yes Status: Suspected Qualifiers: Depression Type: dysthymia Qualified Code(s): F34.1 - Dysthymic disorder - AMA Did Patient Leave Against Medical Advice: No
[2018-03-02 09:56] VITALS: TEMP 97.9
[2018-03-02] MEDS: HYDROCHLOROTHIAZIDE 12.5 MG CAPSULE (FP) PO SCH (10:23)
[2018-03-02] MEDS: amLODIPine BESYLATE 5 MG TABLET (FP) PO SCH (10:23)
[2018-03-02] MEDS: PRENATAL VITAMINS W/ FOLIC ACID TABLET (FP) PO SCH (10:23)
[2018-03-02] MEDS: NICOTINE 21 MG/24 HOURS TOPICAL PATCH TD SCH (10:24)
[2018-03-02 13:26] VITALS: BP 123/76; PULSE 100
== END 2018-03-02 13:58 | disposition home or self-care (01) | DRG 774 ==
LOC: YASAS 15:12 → Y6N 20:36
PROVIDERS: ADMIT Surgery; ATTEND Surgery
PROC: HZ2ZZZZ Detoxification Services for Substance Abuse Treatment (ICD-10-PCS; principal; 2018-02-26)
DX: F10.20 Alcohol dependence, uncomplicated (principal); F14.20 Cocaine dependence, uncomplicated; F12.20 Cannabis dependence, uncomplicated; F17.210 Nicotine dependence, cigarettes, uncomplicated; F19.24 Other psychoactive substance dependence with psychoactive substance-induced mood disorder; F34.1 Dysthymic disorder; G47.00 Insomnia, unspecified; I10 Essential (primary) hypertension; J45.20 Mild intermittent asthma, uncomplicated; E86.0 Dehydration
CPT/HCPCS: 36415; 80053; 81003; 81015; 85027; 86593; 93005; 93010; Q0162

== ENCOUNTER 2018-05-17 13:53 | Inpatient (IN) | payer OTHER ==
[2018-05-17 17:11] VITALS: BMI 24.1
--- NOTE | 2018-05-17 19:12 | HP ---
CIWA Score - CIWA Score Nausea/Vomitin-Mild Nausea/No Vomiting Muscle Tremors: 4-Moderate,w/Arms Extend Anxiety: 4-Mod. Anxious/Guarded Agitation: 4-Moderately Restless Paroxysmal Sweats: 3 Orientation: 0-Oriented Tacttile Disturbances: 0-None Auditory Disturbances: 0-None Visual Disturbances: 0-None Headache: 1-Very Mild CIWA-Ar Total Score: 17 Admission ROS BHS - HPI Chief Complaint: I need to get it right Allergies/Adverse Reactions: Allergies Allergy/AdvReac Type Severity Reaction Status Date / Time shellfish derived Allergy Verified 05/17/18 17:41 History of Present Illness: pt is a 42yr old female with a history of alcohol and crack/cocaine dependence seeking detox for treatment. Exam Limitations: No Limitations - Ebola screening Have you traveled outside of the country in the last 21 days: No Have you had contact with anyone from an Ebola affected area: No Have you been sick,other than usual withdrawal symptoms: No Do you have a fever: No - Review of Systems Constitutional: Chills, Diaphoresis, Loss of Appetite, Changes in sleep, Unintentional Wgt. Loss EENT: reports: Tearing, Nose Congestion Respiratory: reports: Cough Cardiac: reports: No Symptoms Reported GI: reports: Nausea, Poor Appetite, Poor Fluid Intake : reports: No Symptoms Reported Musculoskeletal: reports: Back Pain, Muscle Pain Integumentary: reports: Flushing, Sweating Neuro: reports: Tingling, Tremors Endocrine: reports: Excessive Sweating, Flushing, Intolerance to Cold, Intolerance to Heat Hematology: reports: No Symptoms Reported Psychiatric: reports: Judgement Intact, Mood/Affect Appropiate, Orientated x3, Agitated, Anxious Other Systems: Reviewed and Negative Patient History - Patient Medical History Hx Anemia: No Hx Asthma: Yes Hx Chronic Obstructive Pulmonary Disease (COPD): No Hx Cancer: No Hx Cardiac Disorders: No Hx Congestive Heart Failure: No Hx Hypertension: No Hx Hypercholesterolemia: No HX Cerebrovascular Accident: No Hx Seizures: No Hx Dementia: No Hx Diabetes: No Hx Gastrointestinal Disorders: No Hx Liver Disease: No Hx Genitourinary Disorders: No Hx Sexually Transmitted Disorders: No Hx Renal Disease (ESRD): No Hx Thyroid Disease: No Hx Human Immunodeficiency Virus (HIV): No Hx Hepatitis C: No Hx Depression: No Hx Suicide Attempt: No Hx Bipolar Disorder: No Hx Schizophrenia: No - Patient Surgical History Past Surgical History: No Hx Neurologic Surgery: No Hx Cataract Extraction: No Hx Cardiac Surgery: No Hx Lung Surgery: No Hx Breast Surgery: No Hx Breast Biopsy: No Hx Abdominal Surgery: No Hx Appendectomy: No Hx Cholecystectomy: No Hx Genitourinary Surgery: No Hx Section: No Hx Orthopedic Surgery: No Anesthesia Reaction: No - PPD History Date: 02/28/18 PPD to be Administered?: No - Reproductive History Patient is a Female of Child Bearing Age (11 -55 yrs old): Yes Last Menstrual Period: 04/20/18 Patient : No - Smoking Cessation Smoking history: Current every day smoker Have you smoked in the past 12 months: Yes Aproximately how many cigarettes per day: 10 Cigars Per Day: 0 Hx Chewing Tobacco Use: No Initiated information on smoking cessation: Yes 'Breaking Loose' booklet given: 05/17/18 - Substance & Tx. History Hx Alcohol Use: Yes Hx Substance Use: Yes Substance Use Type: Alcohol, Cocaine Hx Substance Use Treatment: Yes (last detox [facility]) - Substances Abused Alcohol Route: Oral Frequency: Daily Amount used: 24OZ BEER Age of first use: 19 Date of Last Use: 05/17/18 Crack Route: Smoking Frequency: Daily Amount used: $150 Age of first use: 36 Date of Last Use: 05/17/18 Cocaine Route: Smoking Frequency: Daily Amount used: $100 Age of first use: 22 Date of Last Use: 05/17/18 Family Disease History - Family Disease History Family Disease History: Other: Mother ( RENAL) Admission Physical Exam S - Vital Signs Vital Signs: Vital Signs - 24 hr 05/17/18 17:09 Temperature 98.8 F Pulse Rate 84 Respiratory 20 Rate Blood Pressure 167/91 - Physical General Appearance: Yes: Appropriately Dressed, Moderate Distress, Tremorous, Irritable, Sweating, Anxious HEENTM: Yes: Normal Voice, Nasal Congestion, Rhinorrhea Respiratory: Yes: Lungs Clear, Normal Breath Sounds, No Respiratory Distress Neck: Yes: No masses,lesions,Nodules Breast: Yes: Within Normal Limits Cardiology: Yes: Regular Rhythm, Regular Rate, S1, S2 Abdominal: Yes: Normal Bowel Sounds, Non Tender, Soft Genitourinary: Yes: Within Normal Limits Back: Yes: Normal Inspection Musculoskeletal: Yes: Back pain Extremities: Yes: Normal Inspection, Non-Tender, Tremors Neurological: Yes: Fully Oriented, Alert, Normal Response Integumentary: Yes: Normal Color Lymphatic: Yes: Within Normal Limits - Diagnostic (1) Alcohol dependence with uncomplicated withdrawal Current Visit: Yes Status: Chronic (2) Nicotine dependence Current Visit: Yes Status: Chronic Qualifiers: Nicotine product type: cigarettes Substance use status: uncomplicated Qualified Code(s): F17.210 - Nicotine dependence, cigarettes, uncomplicated (3) Asthma Current Visit: Yes Status: Chronic Qualifiers: Asthma severity: mild (4) Cannabis dependence, uncomplicated Current Visit: Yes Status: Chronic (5) Hypertension Current Visit: Yes Status: Chronic Qualifiers: Hypertension type: essential hypertension Comment: non compliant with her medication. she states she doesnt take any meds. Cleared for Admission [facility] - Detox or Rehab [facility] Level of Care: Medically Managed Detox Regimen/Protocol: Librium [facility] Breath Alcohol Content Breath Alcohol Content: 0 Urine Pregancy Test - Result Urine Test Results: Negative- NO Line Present Urine Drug Screen - Results Drug Screen Negative: No Urine Drug Screen Results: THC-Marijuana, SUZY-Cocaine
[2018-05-17] MEDS ORDERED: LOPERAMIDE HCL 2 MG CAPSULE PO PRN (19:13)
[2018-05-17] MEDS ORDERED: chlordiazePOXIDE HCL 25 MG CAPSULE PO PRN (19:13)
[2018-05-17] MEDS ORDERED: IBUPROFEN 400 MG TABLET (FP) PO PRN (19:13)
[2018-05-17] MEDS ORDERED: hydrOXYzine PAMOATE 50 MG CAPSULE (FP) PO PRN (19:13)
[2018-05-17] MEDS ORDERED: MAGNESIUM CITRATE 300 ML BOTTLE PO PRN (19:13)
[2018-05-17] MEDS ORDERED: MAG HYDROX/AL HYDROX/SIMETH 30 ML UNIT-DOSE CUP PO PRN (19:13)
[2018-05-17] MEDS ORDERED: P-EPHED 60MG/TRIPROLIDI 2.5MG TABLET PO PRN (19:13)
[2018-05-17] MEDS ORDERED: ACETAMINOPHEN 325 MG TABLET (FP) PO PRN (19:13)
[2018-05-17] MEDS ORDERED: MAGNESIUM HYDROX 2400MG/30ML ORAL SUSPENSION 30 ML CUP PO PRN (19:13)
[2018-05-17] MEDS ORDERED: chlordiazePOXIDE HCL 25 MG CAPSULE PO ONE (19:13)
[2018-05-17] MEDS ORDERED: MENTHOL/PHENOL 1 EACH UD MM PRN (19:13)
[2018-05-17] MEDS ORDERED: NICOTINE POLACRILEX 4 MG GUM BC PRN (19:13)
[2018-05-17] MEDS ORDERED: MELATONIN 5 MG TABLETS PO PRN (22:00)
[2018-05-17] MEDS: THIAMINE HCL 100 MG TABLET (FP) PO SCH (22:09)
[2018-05-17] MEDS: chlordiazePOXIDE HCL 25 MG CAPSULE PO SCH (22:09)
[2018-05-17 23:00] LABS: URINE APPEARANCE CLEAR; URINE BILIRUBIN NEGATIVE (<2.0 mg/dL); URINE COLOR YELLOW; URINE GLUCOSE (UA) NEGATIVE (NEGATIVE); URINE KETONE NEGATIVE (NEGATIVE); URINE LEUK ESTERASE TRACE (NEGATIVE); URINE NITRITE NEGATIVE (NEGATIVE); URINE UROBILINOGEN 4.0 E.U/dl mg/dL (0.2-1.0)
[2018-05-17 23:18] LABS: URINE PROTEIN 1+ (NEGATIVE)
[2018-05-17 23:20] LABS: EPI CELLS RARE /HPF (FEW); URINE MUCUS RARE
[2018-05-18] MEDS: chlordiazePOXIDE HCL 25 MG CAPSULE PO SCH ×5 (05:20→22:08)
[2018-05-18] MEDS: guaiFENesin/D-METHORPHAN HB 10 ML UNIT-DOSE CUPS PO PRN ×3 (05:23→17:24)
--- NOTE | 2018-05-18 09:35 | PN ---
S CIWA - CIWA Score Nausea/Vomitin Muscle Tremors: 3 Anxiety: 3 Agitation: 2 Paroxysmal Sweats: 3 Orientation: 0-Oriented Tacttile Disturbances: 1-Very Mild Itch/Numbness Auditory Disturbances: 0-None Visual Disturbances: 0-None Headache: 0-None Present CIWA-Ar Total Score: 14 [facility] Progress Note (SOAP) Subjective: interrupted sleep, sweats, anxiety Objective: 05/18/18 09:33 Vital Signs Temperature 98.1 F 05/18/18 06:25 Pulse Rate 84 05/18/18 06:25 Respiratory Rate 18 05/18/18 06:25 Blood Pressure 142/81 05/18/18 06:25 O2 Sat by Pulse Oximetry (%) Laboratory Tests 05/17/18 21:22 Urine Color Yellow Urine Appearance Clear Urine pH 6.0 Ur Specific [place] 1.028 Urine Protein 1+ H Urine Glucose (UA) Negative Urine Ketones Negative Urine Blood Negative Urine Nitrite Negative Urine Bilirubin Negative Urine Urobilinogen 4.0 e.u/dl H Ur Leukocyte Esterase Trace Urine WBC (Auto) 18 Urine RBC (Auto) 18 Ur Epithelial Cells Rare Urine Mucus Rare labs pending 05/18/18 09:33 pt aox3 in nad ambulating Assessment: 05/18/18 09:34 withdrawal sx's abn u/a r/o uti 05/18/18 09:35 Plan: cont. detox increase fluids f/up pending labs repeat u/a , cx
[2018-05-18 10:00] LABS: HEMATOCRIT 35.7 % (32.4-45.2); HEMOGLOBIN 12.2 GM/dL (10.7-15.3); MCHC 34.1 g/dl (32.0-36.0); MEAN CELL VOLUME 90.8 fl (80-96); MEAN PLT VOLUME 9.2 fl (7.5-11.1); PLATELET COUNT 192 K/MM3 (134-434); RBC 3.93 M/mm3 (3.60-5.2); RDW 13.2 % (11.6-15.6); WHITE BLOOD COUNT 6.6 K/mm3 (4.0-10.0)
[2018-05-18] MEDS: PRENATAL VITAMINS W/ FOLIC ACID TABLET (FP) PO SCH (10:26)
[2018-05-18] MEDS: NICOTINE 21 MG/24 HOURS TOPICAL PATCH TD SCH (10:28)
[2018-05-18 10:54] LABS: CHLORIDE 113 mmol/L (98-107); POTASSIUM 4.2 mmol/L (3.5-5.1); SODIUM 143 mmol/L (136-145)
[2018-05-18 11:12] LABS: ALBUMIN 3.3 g/dl (3.4-5.0); ALK PHOS 97 U/L (45-117); ANION GAP 8 (8-16); BILIRUBIN,TOTAL 0.4 mg/dL (0.2-1.0); BLOOD UREA NITROGEN 15 mg/dL (7-18); CALCIUM 8.4 mg/dL (8.5-10.1); CO2 22 mmol/L (21-32); CREATININE 0.8 mg/dL (0.55-1.02); GLUCOSE,RANDOM 107 mg/dL (74-106); SGOT/AST 7 U/L (15-37); SGPT/ALT 14 U/L (12-78); TOT PROT 6.1 g/dl (6.4-8.2)
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
[2018-05-18] MEDS: THIAMINE HCL 100 MG TABLET (FP) PO SCH (22:08)
[2018-05-19] MEDS: guaiFENesin/D-METHORPHAN HB 10 ML UNIT-DOSE CUPS PO PRN (06:05)
[2018-05-19] MEDS: chlordiazePOXIDE HCL 25 MG CAPSULE PO SCH ×3 (06:05→18:19)
--- NOTE | 2018-05-19 09:03 | EKG ---
Test Reason : Blood Pressure : / mmHG Vent. Rate : 084 BPM Atrial Rate : 084 BPM P-R Int : 138 ms QRS Dur : 094 ms QT Int : 460 ms P-R-T Axes : 056 064 073 degrees QTc Int : 543 ms NORMAL SINUS RHYTHM MINIMAL VOLTAGE CRITERIA FOR LVH, MAY BE NORMAL VARIANT PROLONGED QT ABNORMAL ECG WHEN COMPARED WITH ECG OF 27-FEB-2018 09:23, NO SIGNIFICANT CHANGE WAS FOUND Confirmed by DARIEN GUTIERREZ MD ([id number]) on 05/19/2018 9:03:25 AM Referred By: Confirmed By:DARIEN GUTIERREZ MD
[2018-05-19] MEDS: NICOTINE 21 MG/24 HOURS TOPICAL PATCH TD SCH (10:47)
[2018-05-19] MEDS: PRENATAL VITAMINS W/ FOLIC ACID TABLET (FP) PO SCH (10:47)
[2018-05-19 11:08] LABS: URINE APPEARANCE CLEAR; URINE BILIRUBIN NEGATIVE (<2.0 mg/dL); URINE COLOR YELLOW; URINE GLUCOSE (UA) NEGATIVE (NEGATIVE); URINE KETONE NEGATIVE (NEGATIVE); URINE LEUK ESTERASE TRACE (NEGATIVE); URINE NITRITE NEGATIVE (NEGATIVE); URINE PROTEIN NEGATIVE (NEGATIVE); URINE UROBILINOGEN NEGATIVE mg/dL (0.2-1.0)
[2018-05-19 11:09] LABS: EPI CELLS RARE /HPF (FEW); URINE HYALINE CAST 1 /lpf; URINE MUCUS RARE
--- NOTE | 2018-05-19 14:05 | PN ---
S CIWA - CIWA Score Nausea/Vomitin Muscle Tremors: 3 Anxiety: 3 Agitation: 3 Paroxysmal Sweats: 1-Minimal Palms Moist Orientation: 0-Oriented Tacttile Disturbances: 1-Very Mild Itch/Numbness Auditory Disturbances: 1-Very Mild Visual Disturbances: 0-None Headache: 2-Mild CIWA-Ar Total Score: 17 BHS Progress Note (SOAP) Subjective: alert,irritable,anxious,interrupted sleep,pain in the body Objective: 05/19/18 14:04 Vital Signs Temperature 97.9 F 05/19/18 10:06 Pulse Rate 93 H 05/19/18 10:06 Respiratory Rate 18 05/19/18 10:06 Blood Pressure 149/91 05/19/18 10:06 O2 Sat by Pulse Oximetry (%) Laboratory Last Values WBC 6.6 K/mm3 (4.0-10.0) 05/18/18 07:40 RBC 3.93 M/mm3 (3.60-5.2) 05/18/18 07:40 Hgb 12.2 GM/dL (10.7-15.3) 05/18/18 07:40 Hct 35.7 % (32.4-45.2) 05/18/18 07:40 MCV 90.8 fl (80-96) 05/18/18 07:40 MCH 31.0 pg (25.7-33.7) 05/18/18 07:40 MCHC 34.1 g/dl (32.0-36.0) 05/18/18 07:40 RDW 13.2 % (11.6-15.6) 05/18/18 07:40 Plt Count 192 K/MM3 (134-434) 05/18/18 07:40 MPV 9.2 fl (7.5-11.1) 05/18/18 07:40 Sodium 143 mmol/L (136-145) 05/18/18 07:40 Potassium 4.2 mmol/L (3.5-5.1) 05/18/18 07:40 Chloride 113 mmol/L (98-107) H 05/18/18 07:40 Carbon Dioxide 22 mmol/L (21-32) 05/18/18 07:40 Anion Gap 8 (8-16) 05/18/18 07:40 BUN 15 mg/dL (7-18) 05/18/18 07:40 Creatinine 0.8 mg/dL (0.55-1.02) 05/18/18 07:40 Creat Clearance w eGFR > 60 (>60) 05/18/18 07:40 Random Glucose 107 mg/dL (74-106) H 05/18/18 07:40 Calcium 8.4 mg/dL (8.5-10.1) L 05/18/18 07:40 Total Bilirubin 0.4 mg/dL (0.2-1.0) 05/18/18 07:40 AST 7 U/L (15-37) L 05/18/18 07:40 ALT 14 U/L (12-78) 05/18/18 07:40 Alkaline Phosphatase 97 U/L (45-117) 05/18/18 07:40 Total Protein 6.1 g/dl (6.4-8.2) L 05/18/18 07:40 Albumin 3.3 g/dl (3.4-5.0) L 05/18/18 07:40 Urine Color Yellow 05/19/18 09:00 Urine Appearance Clear 05/19/18 09:00 Urine pH 6.0 (5.0-8.0) 05/19/18 09:00 Ur Specific [place] 1.025 (1.001-1.035) 05/19/18 09:00 Urine Protein Negative (NEGATIVE) 05/19/18 09:00 Urine Glucose (UA) Negative (NEGATIVE) 05/19/18 09:00 Urine Ketones Negative (NEGATIVE) 05/19/18 09:00 Urine Blood Negative (NEGATIVE) 05/19/18 09:00 Urine Nitrite Negative (NEGATIVE) 05/19/18 09:00 Urine Bilirubin Negative (<2.0 mg/dL) 05/19/18 09:00 Urine Urobilinogen Negative mg/dL (0.2-1.0) 05/19/18 09:00 Ur Leukocyte Esterase Trace (NEGATIVE) 05/19/18 09:00 Urine WBC (Auto) 12 /hpf (3-5) 05/19/18 09:00 Urine RBC (Auto) 2 /hpf (0-3) 05/19/18 09:00 Ur Epithelial Cells Rare /HPF (FEW) 05/19/18 09:00 Hyaline Casts 1 /lpf 05/19/18 09:00 Urine Mucus Rare 05/19/18 09:00 05/19/18 14:04 rpr pending Assessment: 05/19/18 14:04 withdrawal symptom Plan: continue detox
[2018-05-19] MEDS: THIAMINE HCL 100 MG TABLET (FP) PO SCH (23:35)
[2018-05-19] MEDS: chlordiazePOXIDE 5 MG CAPSULE PO SCH (23:35)
[2018-05-20] MEDS: chlordiazePOXIDE 5 MG CAPSULE PO SCH ×3 (05:50→17:10)
[2018-05-20] MEDS: guaiFENesin/D-METHORPHAN HB 10 ML UNIT-DOSE CUPS PO PRN ×2 (05:54→17:11)
[2018-05-20] MEDS: PRENATAL VITAMINS W/ FOLIC ACID TABLET (FP) PO SCH (10:46)
[2018-05-20] MEDS: NICOTINE 21 MG/24 HOURS TOPICAL PATCH TD SCH (11:42)
--- NOTE | 2018-05-20 14:00 | PN ---
BHS Progress Note (SOAP) Subjective: feeling better less sweat no tremor no gi distress sleep better at night Objective: 05/20/18 13:58 Vital Signs Temperature 98.2 F 05/20/18 10:54 Pulse Rate 89 05/20/18 10:54 Respiratory Rate 18 05/20/18 10:54 Blood Pressure 137/78 05/20/18 10:54 O2 Sat by Pulse Oximetry (%) Laboratory Last Values WBC 6.6 K/mm3 (4.0-10.0) 05/18/18 07:40 RBC 3.93 M/mm3 (3.60-5.2) 05/18/18 07:40 Hgb 12.2 GM/dL (10.7-15.3) 05/18/18 07:40 Hct 35.7 % (32.4-45.2) 05/18/18 07:40 MCV 90.8 fl (80-96) 05/18/18 07:40 MCH 31.0 pg (25.7-33.7) 05/18/18 07:40 MCHC 34.1 g/dl (32.0-36.0) 05/18/18 07:40 RDW 13.2 % (11.6-15.6) 05/18/18 07:40 Plt Count 192 K/MM3 (134-434) 05/18/18 07:40 MPV 9.2 fl (7.5-11.1) 05/18/18 07:40 Sodium 143 mmol/L (136-145) 05/18/18 07:40 Potassium 4.2 mmol/L (3.5-5.1) 05/18/18 07:40 Chloride 113 mmol/L (98-107) H 05/18/18 07:40 Carbon Dioxide 22 mmol/L (21-32) 05/18/18 07:40 Anion Gap 8 (8-16) 05/18/18 07:40 BUN 15 mg/dL (7-18) 05/18/18 07:40 Creatinine 0.8 mg/dL (0.55-1.02) 05/18/18 07:40 Creat Clearance w eGFR > 60 (>60) 05/18/18 07:40 Random Glucose 107 mg/dL (74-106) H 05/18/18 07:40 Calcium 8.4 mg/dL (8.5-10.1) L 05/18/18 07:40 Total Bilirubin 0.4 mg/dL (0.2-1.0) 05/18/18 07:40 AST 7 U/L (15-37) L 05/18/18 07:40 ALT 14 U/L (12-78) 05/18/18 07:40 Alkaline Phosphatase 97 U/L (45-117) 05/18/18 07:40 Total Protein 6.1 g/dl (6.4-8.2) L 05/18/18 07:40 Albumin 3.3 g/dl (3.4-5.0) L 05/18/18 07:40 Urine Color Yellow 05/19/18 09:00 Urine Appearance Clear 05/19/18 09:00 Urine pH 6.0 (5.0-8.0) 05/19/18 09:00 Ur Specific [place] 1.025 (1.001-1.035) 05/19/18 09:00 Urine Protein Negative (NEGATIVE) 05/19/18 09:00 Urine Glucose (UA) Negative (NEGATIVE) 05/19/18 09:00 Urine Ketones Negative (NEGATIVE) 05/19/18 09:00 Urine Blood Negative (NEGATIVE) 05/19/18 09:00 Urine Nitrite Negative (NEGATIVE) 05/19/18 09:00 Urine Bilirubin Negative (<2.0 mg/dL) 05/19/18 09:00 Urine Urobilinogen Negative mg/dL (0.2-1.0) 05/19/18 09:00 Ur Leukocyte Esterase Trace (NEGATIVE) 05/19/18 09:00 Urine WBC (Auto) 12 /hpf (3-5) 05/19/18 09:00 Urine RBC (Auto) 2 /hpf (0-3) 05/19/18 09:00 Ur Epithelial Cells Rare /HPF (FEW) 05/19/18 09:00 Hyaline Casts 1 /lpf 05/19/18 09:00 Urine Mucus Rare 05/19/18 09:00 RPR Titer Nonreactive (NONREACTIVE) 05/18/18 07:40 lab noted repeat ua Assessment: 05/20/18 14:00 mild withdrawal sx Plan: medically supervised detox
[2018-05-20] MEDS: THIAMINE HCL 100 MG TABLET (FP) PO SCH (22:40)
[2018-05-20] MEDS: chlordiazePOXIDE HCL 10 MG CAPSULE PO SCH (22:40)
[2018-05-21] MEDS: chlordiazePOXIDE HCL 10 MG CAPSULE PO SCH ×2 (06:23→10:23)
[2018-05-21] MEDS: guaiFENesin/D-METHORPHAN HB 10 ML UNIT-DOSE CUPS PO PRN (06:23)
[2018-05-21 10:00] VITALS: BP 126/71; PULSE 90; TEMP 97.2
[2018-05-21] MEDS: PRENATAL VITAMINS W/ FOLIC ACID TABLET (FP) PO SCH (10:23)
[2018-05-21] MEDS: NICOTINE 21 MG/24 HOURS TOPICAL PATCH TD SCH (10:26)
--- NOTE | 2018-05-21 10:30 | PN ---
S Progress Note (SOAP) Subjective: alert,no complaint Objective: 05/21/18 10:28 Vital Signs Temperature 97.2 F L 05/21/18 10:00 Pulse Rate 90 05/21/18 10:00 Respiratory Rate 16 05/21/18 10:00 Blood Pressure 126/71 05/21/18 10:00 O2 Sat by Pulse Oximetry (%) Assessment: 05/21/18 10:29 detox completed,no withdrawal symptom Plan: discharge today,follow up with after care program as arrangement
--- NOTE | 2018-05-21 10:34 | DS ---
[facility] Detox Discharge Summary Admission Date: 05/17/18 Discharge Date: 05/21/18 - History Present History: Alcohol Dependence, Cannabis Dependence, Cocaine Dependence Additional Comments: follow up with after care program as arrangement Pertinent Past History: asthma hypertension - Physical Exam Results Vital Signs: Vital Signs Temperature 97.2 F L 05/21/18 10:00 Pulse Rate 90 05/21/18 10:00 Respiratory Rate 16 05/21/18 10:00 Blood Pressure 126/71 05/21/18 10:00 O2 Sat by Pulse Oximetry (%) Pertinent Admission Physical Exam Findings: withdrawal signs and symptom Vital Signs Temperature 97.2 F L 05/21/18 10:00 Pulse Rate 90 05/21/18 10:00 Respiratory Rate 16 05/21/18 10:00 Blood Pressure 126/71 05/21/18 10:00 O2 Sat by Pulse Oximetry (%) Laboratory Last Values WBC 6.6 K/mm3 (4.0-10.0) 05/18/18 07:40 RBC 3.93 M/mm3 (3.60-5.2) 05/18/18 07:40 Hgb 12.2 GM/dL (10.7-15.3) 05/18/18 07:40 Hct 35.7 % (32.4-45.2) 05/18/18 07:40 MCV 90.8 fl (80-96) 05/18/18 07:40 MCH 31.0 pg (25.7-33.7) 05/18/18 07:40 MCHC 34.1 g/dl (32.0-36.0) 05/18/18 07:40 RDW 13.2 % (11.6-15.6) 05/18/18 07:40 Plt Count 192 K/MM3 (134-434) 05/18/18 07:40 MPV 9.2 fl (7.5-11.1) 05/18/18 07:40 Sodium 143 mmol/L (136-145) 05/18/18 07:40 Potassium 4.2 mmol/L (3.5-5.1) 05/18/18 07:40 Chloride 113 mmol/L (98-107) H 05/18/18 07:40 Carbon Dioxide 22 mmol/L (21-32) 05/18/18 07:40 Anion Gap 8 (8-16) 05/18/18 07:40 BUN 15 mg/dL (7-18) 05/18/18 07:40 Creatinine 0.8 mg/dL (0.55-1.02) 05/18/18 07:40 Creat Clearance w eGFR > 60 (>60) 05/18/18 07:40 Random Glucose 107 mg/dL (74-106) H 05/18/18 07:40 Calcium 8.4 mg/dL (8.5-10.1) L 05/18/18 07:40 Total Bilirubin 0.4 mg/dL (0.2-1.0) 05/18/18 07:40 AST 7 U/L (15-37) L 05/18/18 07:40 ALT 14 U/L (12-78) 05/18/18 07:40 Alkaline Phosphatase 97 U/L (45-117) 05/18/18 07:40 Total Protein 6.1 g/dl (6.4-8.2) L 05/18/18 07:40 Albumin 3.3 g/dl (3.4-5.0) L 05/18/18 07:40 Urine Color Yellow 05/19/18 09:00 Urine Appearance Clear 05/19/18 09:00 Urine pH 6.0 (5.0-8.0) 05/19/18 09:00 Ur Specific [place] 1.025 (1.001-1.035) 05/19/18 09:00 Urine Protein Negative (NEGATIVE) 05/19/18 09:00 Urine Glucose (UA) Negative (NEGATIVE) 05/19/18 09:00 Urine Ketones Negative (NEGATIVE) 05/19/18 09:00 Urine Blood Negative (NEGATIVE) 05/19/18 09:00 Urine Nitrite Negative (NEGATIVE) 05/19/18 09:00 Urine Bilirubin Negative (<2.0 mg/dL) 05/19/18 09:00 Urine Urobilinogen Negative mg/dL (0.2-1.0) 05/19/18 09:00 Ur Leukocyte Esterase Trace (NEGATIVE) 05/19/18 09:00 Urine WBC (Auto) 12 /hpf (3-5) 05/19/18 09:00 Urine RBC (Auto) 2 /hpf (0-3) 05/19/18 09:00 Ur Epithelial Cells Rare /HPF (FEW) 05/19/18 09:00 Hyaline Casts 1 /lpf 05/19/18 09:00 Urine Mucus Rare 05/19/18 09:00 RPR Titer Nonreactive (NONREACTIVE) 05/18/18 07:40 - Treatment Hospital Course: Detox Protocol Followed, Detoxed Safely, Responded well, Discharged Condition Good, Rehab Referral Accepted Patient has Accepted a Rehab Referral to: [facility] - Medication Discharge Medications: Ambulatory Orders Albuterol Sulfate Inhaler - [Ventolin HFA Inhaler -] 2 inh PO Q6H #1 inhaler 03/02 - Diagnosis (1) Alcohol dependence with uncomplicated withdrawal Current Visit: Yes Status: Chronic (2) Asthma Current Visit: Yes Status: Chronic Qualifiers: Asthma severity: mild (3) Cannabis dependence, uncomplicated Current Visit: Yes Status: Chronic (4) Hypertension Current Visit: Yes Status: Chronic Qualifiers: Hypertension type: essential hypertension (5) Nicotine dependence Current Visit: Yes Status: Chronic Qualifiers: Nicotine product type: cigarettes Substance use status: uncomplicated Qualified Code(s): F17.210 - Nicotine dependence, cigarettes, uncomplicated (6) Cocaine dependence, uncomplicated Current Visit: No Status: Acute
[2018-05-21 11:16] LABS: URINE APPEARANCE SLCLOUDY; URINE BILIRUBIN NEGATIVE (<2.0 mg/dL); URINE COLOR LTYELLOW; URINE GLUCOSE (UA) NEGATIVE (NEGATIVE); URINE KETONE NEGATIVE (NEGATIVE); URINE NITRITE NEGATIVE (NEGATIVE); URINE PROTEIN NEGATIVE (NEGATIVE); URINE UROBILINOGEN NEGATIVE mg/dL (0.2-1.0)
[2018-05-21 11:22] LABS: URINE LEUK ESTERASE 1+ (NEGATIVE)
[2018-05-21 11:26] LABS: EPI CELLS FEW /HPF (FEW); URINE MUCUS RARE
== END 2018-05-21 14:37 | disposition other institution (70) | DRG 774 ==
LOC: YASAS 13:53 → Y6N 18:46
PROVIDERS: ADMIT Surgery; ATTEND Surgery
PROC: HZ2ZZZZ Detoxification Services for Substance Abuse Treatment (ICD-10-PCS; principal; 2018-05-17)
DX: F10.230 Alcohol dependence with withdrawal, uncomplicated (principal); F14.20 Cocaine dependence, uncomplicated; F12.20 Cannabis dependence, uncomplicated; F17.210 Nicotine dependence, cigarettes, uncomplicated; F19.282 Other psychoactive substance dependence with psychoactive substance-induced sleep disorder; I10 Essential (primary) hypertension; J45.909 Unspecified asthma, uncomplicated; R82.90 Unspecified abnormal findings in urine; Z91.013 Allergy to seafood
CPT/HCPCS: 36415; 80053; 81003; 81015; 85027; 86593; 87086; 93005; 93010

== ENCOUNTER 2018-05-21 14:38 | Inpatient (IN) | payer OTHER ==
[2018-05-21 15:00] VITALS: BMI 25.0
[2018-05-21] MEDS ORDERED: IBUPROFEN 400 MG TABLET (FP) PO PRN (17:22)
[2018-05-21] MEDS ORDERED: LOPERAMIDE HCL 2 MG CAPSULE PO PRN (17:22)
[2018-05-21] MEDS ORDERED: MENTHOL/PHENOL 1 EACH UD MM PRN (17:22)
[2018-05-21] MEDS ORDERED: NICOTINE POLACRILEX 2 MG GUM BUC PRN (17:22)
[2018-05-21] MEDS ORDERED: MAGNESIUM HYDROX 2400MG/30ML ORAL SUSPENSION 30 ML CUP PO PRN (17:22)
[2018-05-21] MEDS ORDERED: MAG HYDROX/AL HYDROX/SIMETH 30 ML UNIT-DOSE CUP PO PRN (17:22)
[2018-05-21] MEDS ORDERED: P-EPHED 60MG/TRIPROLIDI 2.5MG TABLET PO PRN (17:22)
[2018-05-21] MEDS ORDERED: MAGNESIUM CITRATE 300 ML BOTTLE PO PRN (17:22)
[2018-05-21] MEDS ORDERED: ACETAMINOPHEN 325 MG TABLET (FP) PO PRN (17:22)
[2018-05-21] MEDS ORDERED: hydrOXYzine PAMOATE 50 MG CAPSULE (FP) PO PRN (17:22)
[2018-05-21] MEDS ORDERED: ALBUTEROL SO4 8 GM HFA INHALER IH PRN (17:22)
[2018-05-21] MEDS ORDERED: guaiFENesin/D-METHORPHAN HB 10 ML UNIT-DOSE CUPS PO PRN (17:22)
--- NOTE | 2018-05-21 17:23 | HP ---
[facility] Rehab Assess/Revision - Admission History Admitted to Rehab from: [facility] Date of Admission to Rehab: 05/21/18 - Vital signs Vital Signs: Vital Signs Period Temp Pulse Resp BP Sys/Sheldon Pulse Ox Last 24 Hr 97.9 F-97.9 F 87-87 17-17 132-132/84-84 - Findings Detox History & Physical reviewed: Yes Concur with findings: Yes Inpatient Rehab Admission - Initial Determination Are CD services needed?: Yes Not in need of hospitalization: Yes - Rehab Admission Criteria Previous failed treatment: Yes Poor recovery environment: Yes Comorbidities: Yes Lacks judgement: Yes Patient is meeting Inpatient Rehab admission criteria:: Yes
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
[2018-05-21] MEDS ORDERED: MELATONIN 5 MG TABLETS PO PRN (22:00)
[2018-05-21] MEDS: THIAMINE HCL 100 MG TABLET (FP) PO SCH (22:20)
[2018-05-22] MEDS: PRENATAL VITAMINS W/ FOLIC ACID TABLET (FP) PO SCH (10:04)
[2018-05-22] MEDS: NICOTINE 14 MG/24 HOURS TOPICAL PATCH TD SCH (10:04)
[2018-05-22] MEDS: THIAMINE HCL 100 MG TABLET (FP) PO SCH (22:00)
[2018-05-23] MEDS: NICOTINE 14 MG/24 HOURS TOPICAL PATCH TD SCH (09:51)
[2018-05-23] MEDS: PRENATAL VITAMINS W/ FOLIC ACID TABLET (FP) PO SCH (09:51)
[2018-05-23] MEDS: THIAMINE HCL 100 MG TABLET (FP) PO SCH (22:08)
[2018-05-24] MEDS: PRENATAL VITAMINS W/ FOLIC ACID TABLET (FP) PO SCH (10:02)
[2018-05-24] MEDS: NICOTINE 14 MG/24 HOURS TOPICAL PATCH TD SCH (10:02)
[2018-05-24] MEDS: THIAMINE HCL 100 MG TABLET (FP) PO SCH (22:09)
[2018-05-25] MEDS: PRENATAL VITAMINS W/ FOLIC ACID TABLET (FP) PO SCH (09:40)
[2018-05-25] MEDS: NICOTINE 14 MG/24 HOURS TOPICAL PATCH TD SCH (09:40)
[2018-05-25] MEDS: THIAMINE HCL 100 MG TABLET (FP) PO SCH (22:04)
[2018-05-26] MEDS: PRENATAL VITAMINS W/ FOLIC ACID TABLET (FP) PO SCH (10:05)
[2018-05-26] MEDS: NICOTINE 14 MG/24 HOURS TOPICAL PATCH TD SCH (10:05)
[2018-05-26] MEDS: THIAMINE HCL 100 MG TABLET (FP) PO SCH (21:53)
[2018-05-27] MEDS: PRENATAL VITAMINS W/ FOLIC ACID TABLET (FP) PO SCH (09:51)
[2018-05-27] MEDS: NICOTINE 14 MG/24 HOURS TOPICAL PATCH TD SCH (09:51)
[2018-05-27] MEDS: THIAMINE HCL 100 MG TABLET (FP) PO SCH (22:25)
[2018-05-28] MEDS: NICOTINE 14 MG/24 HOURS TOPICAL PATCH TD SCH (10:29)
[2018-05-28] MEDS: PRENATAL VITAMINS W/ FOLIC ACID TABLET (FP) PO SCH (10:29)
[2018-05-28] MEDS: THIAMINE HCL 100 MG TABLET (FP) PO SCH (21:54)
[2018-05-29] MEDS: NICOTINE 14 MG/24 HOURS TOPICAL PATCH TD SCH (09:55)
[2018-05-29] MEDS: PRENATAL VITAMINS W/ FOLIC ACID TABLET (FP) PO SCH (09:56)
[2018-05-29] MEDS: THIAMINE HCL 100 MG TABLET (FP) PO SCH (21:57)
[2018-05-30] MEDS: PRENATAL VITAMINS W/ FOLIC ACID TABLET (FP) PO SCH (10:00)
[2018-05-30] MEDS: NICOTINE 14 MG/24 HOURS TOPICAL PATCH TD SCH (10:00)
[2018-05-30] MEDS: THIAMINE HCL 100 MG TABLET (FP) PO SCH (21:47)
[2018-05-31] MEDS: PRENATAL VITAMINS W/ FOLIC ACID TABLET (FP) PO SCH (09:47)
[2018-05-31] MEDS: NICOTINE 14 MG/24 HOURS TOPICAL PATCH TD SCH (09:47)
[2018-05-31] MEDS: THIAMINE HCL 100 MG TABLET (FP) PO SCH (21:27)
[2018-06-01] MEDS: PRENATAL VITAMINS W/ FOLIC ACID TABLET (FP) PO SCH (10:10)
[2018-06-01] MEDS: NICOTINE 14 MG/24 HOURS TOPICAL PATCH TD SCH (10:10)
[2018-06-01] MEDS: THIAMINE HCL 100 MG TABLET (FP) PO SCH (21:48)
[2018-06-02] MEDS: NICOTINE 14 MG/24 HOURS TOPICAL PATCH TD SCH (10:04)
[2018-06-02] MEDS: PRENATAL VITAMINS W/ FOLIC ACID TABLET (FP) PO SCH (10:04)
[2018-06-02] MEDS: THIAMINE HCL 100 MG TABLET (FP) PO SCH (21:20)
[2018-06-03] MEDS: PRENATAL VITAMINS W/ FOLIC ACID TABLET (FP) PO SCH (10:20)
[2018-06-03] MEDS: NICOTINE 14 MG/24 HOURS TOPICAL PATCH TD SCH (10:20)
[2018-06-03] MEDS: THIAMINE HCL 100 MG TABLET (FP) PO SCH (21:51)
[2018-06-04 07:05] VITALS: BP 146/77; PULSE 79; TEMP 97.7
--- NOTE | 2018-06-04 08:08 | PN ---
Psychiatric Progress Note Vital Signs: Vital Signs Period Temp Pulse Resp BP Sys/Sheldon Pulse Ox Last 24 Hr 97.7 F 79 16-18 146/77 Date of Session: 06/04/18 Chief Complaint:: Discharge visit HPI: Cocaine .Alcohol comorbid with Substance induced mood disorder. ROS: BA Current Medications: Active Medications Generic Name Dose Route Start Last Admin Trade Name Freq PRN Reason Stop Dose Admin Acetaminophen 650 mg 05/21/18 17:22 05/22/18 06:50 Tylenol - PO 650 mg Q4H PRN Administration FEVER Al Hydroxide/Mg Hydroxide 30 ml 05/21/18 17:22 Mylanta Oral Suspension - PO Q6H PRN DYSPEPSIA Albuterol Sulfate 2 puff 05/21/18 17:22 Ventolin Hfa Inhaler - IH Q4H PRN WHEEZING Eucalyptus/Menthol/Phenol/Sorbitol 1 each 05/21/18 17:22 Cepastat Lozenge - MM Q4H PRN SORE THROAT Guaifenesin 10 ml 05/21/18 17:22 Robitussin Dm - PO Q6H PRN COUGH Hydroxyzine Pamoate 50 mg 05/21/18 17:22 Vistaril - PO Q4H PRN AGITATION Ibuprofen 400 mg 05/21/18 17:22 05/27/18 15:38 Motrin - PO 400 mg Q6H PRN Administration Pain Level 4-6 Loperamide HCl 4 mg 05/21/18 17:22 Imodium - PO Q6H PRN DIARRHEA Magnesium Citrate 300 ml 05/21/18 17:22 Citroma - PO Q48H PRN CONSTIPATION Magnesium Hydroxide 30 ml 05/21/18 17:22 Milk Of Magnesia - PO DAILY PRN CONSTIPATION Melatonin 5 mg 05/21/18 22:00 Melatonin PO HS PRN INSOMNIA Nicotine 14 mg 05/22/18 10:00 06/03/18 10:20 Nicoderm Patch - TD Not Given DAILY JENNIE Nicotine Polacrilex 2 mg 05/21/18 17:22 Nicorette Gum - BUC Q2H PRN NICOTINE REPLACEMENT RX Multivit/Folic Acid/Iron 1 tab 05/22/18 10:00 06/03/18 10:20 Vitamins (Sjr) - PO Not Given DAILY JENNIE Pseudoephedrine/Triprolidine 1 combo 05/21/18 17:22 Actifed - PO TID PRN NASAL CONGESTION Thiamine HCl 100 mg 05/21/18 22:00 06/03/18 21:51 Vitamin B1 - PO Not Given HS JENNIE Current Side Effect: No Lab tests ordered: No Lab tests reviewed: Yes Provider note:: Patient completed this program today.She has met her treatment goals and will continue to address her issues on outpatient basis . She identifies areas of difficulties and behaviors which contribute to relapse. Supportive therapy provided focusing on relapse prevention ,coping skills, support system utilization has been discussed with the patient as well as other resourses to maintain recovery. Patient is stable for discharge today. Total face to face time:: 25 Mental Status Exam - Mental Status Exam Alert and Oriented to: Time, Place, Person Cognitive Function: Grossly Intact Patient Appearance: Well Groomed Mood: Euthymic Affect: Appropriate Patient Behavior: Cooperative Speech Pattern: Clear Voice Loudness: Normal Thought Process: Goal Oriented Thought Disorder: Not Present Hallucinations: Denies Suicidal Ideation: Denies Homicidal Ideation: Denies Insight/Judgement: Fair Sleep: Fair Appetite: Good Muscle strength/Tone: Normal Gait/Station: Normal
== END 2018-06-04 08:55 | disposition home or self-care (01) | DRG 772 ==
LOC: YASAS 14:38 → Y3E 14:39
PROVIDERS: ADMIT Psychiatry & Neurology Psychiatry; ATTEND Psychiatry & Neurology Psychiatry
PROC: HZ42ZZZ Group Counseling for Substance Abuse Treatment, Cognitive-Behavioral (ICD-10-PCS; principal; 2018-05-21)
DX: F10.20 Alcohol dependence, uncomplicated (principal); F14.20 Cocaine dependence, uncomplicated; F19.24 Other psychoactive substance dependence with psychoactive substance-induced mood disorder; I10 Essential (primary) hypertension; J45.998 Other asthma
CPT/HCPCS: 36415; 87389

== ENCOUNTER 2019-01-09 12:19 | Inpatient (IN) | payer OTHER ==
[2019-01-09 12:51] VITALS: BMI 27.2
--- NOTE | 2019-01-09 14:00 | HP ---
CIWA Score Nausea/Vomitin-Mild Nausea/No Vomiting Muscle Tremors: 4-Moderate,w/Arms Extend Anxiety: 4-Mod. Anxious/Guarded Agitation: 4-Moderately Restless Paroxysmal Sweats: 3 Orientation: 0-Oriented Tacttile Disturbances: 0-None Auditory Disturbances: 0-None Visual Disturbances: 0-None Headache: 0-None Present CIWA-Ar Total Score: 16 - Admission Criteria [facility]ASAS Guidelines: Admission for Medically Managed Detox: Requires at least one of the followin. CIWA greater than 12 2. Seizures within the past 24 hours 3. Delirium tremens within the past 24 hours 4. Hallucinations within the past 24 hours 5. Acute intervention needed for co occurring medical disorder 6. Acute intervention needed for co occurring psychiatric disorder 7. Severe withdrawal that cannot be handled at a lower level of care (continued vomiting, continued diarrhea, abnormal vital signs) requiring intravenous medication and/or fluids 8. Admission ROS [facility] Chief Complaint: I am here to get clean again. I was sober for 7months and recently relapsed. I need this. Allergies/Adverse Reactions: Allergies Allergy/AdvReac Type Severity Reaction Status Date / Time No Known Drug Allergies Allergy Verified 01/09/19 13:30 shellfish derived Allergy Verified 01/09/19 13:30 History of Present Illness: pt is a 43yrold female with a history of alcohol and cocaine dependence seeking detox for treatment. Exam Limitations: No Limitations - Ebola screening Have you traveled outside of the country in the last 21 days: No Have you had contact with anyone from an Ebola affected area: No Have you been sick,other than usual withdrawal symptoms: No Do you have a fever: No - Review of Systems Constitutional: Chills, Diaphoresis, Night Sweats, Changes in sleep EENT: reports: Hearing Loss (pt had tubes in her ears since child) Respiratory: reports: Cough Cardiac: reports: Lightheadedness GI: reports: Diarrhea, Poor Appetite, Poor Fluid Intake, Abdominal cramping : reports: No Symptoms Reported Musculoskeletal: reports: Joint Pain Integumentary: reports: Flushing, Sweating Neuro: reports: Headache, Tingling, Tremors Endocrine: reports: Excessive Sweating, Flushing, Intolerance to Cold, Intolerance to Heat Hematology: reports: Anemia Psychiatric: reports: Judgement Intact, Mood/Affect Appropiate, Orientated x3, Agitated, Anxious Other Systems: Reviewed and Negative Patient History - Patient Medical History Hx Anemia: No Hx Asthma: Yes Hx Chronic Obstructive Pulmonary Disease (COPD): No Hx Cancer: No Hx Cardiac Disorders: No Hx Congestive Heart Failure: No Hx Hypertension: Yes (no meds) Hx Hypercholesterolemia: No Hx Pacemaker: No HX Cerebrovascular Accident: No Hx Seizures: No Hx Dementia: No Hx Diabetes: No Hx Gastrointestinal Disorders: No Hx Liver Disease: No Hx Genitourinary Disorders: No Hx Sexually Transmitted Disorders: No Hx Renal Disease (ESRD): No Hx Thyroid Disease: No Hx Human Immunodeficiency Virus (HIV): No (pt denies) Hx Hepatitis C: No (pt denies) Hx Depression: No Hx Suicide Attempt: No (pt denies) Hx Bipolar Disorder: No Hx Schizophrenia: No - Patient Surgical History Past Surgical History: No Hx Neurologic Surgery: No Hx Cataract Extraction: No Hx Cardiac Surgery: No Hx Lung Surgery: No Hx Breast Surgery: No Hx Breast Biopsy: No Hx Abdominal Surgery: No Hx Appendectomy: No Hx Cholecystectomy: No Hx Genitourinary Surgery: No Hx Section: No Hx Orthopedic Surgery: No Anesthesia Reaction: No - PPD History Previous Implant?: Yes Date: 02/28/18 Results: 0mm PPD to be Administered?: No - Reproductive History Patient is a Female of Child Bearing Age (11 -55 yrs old): Yes Last Menstrual Period: 01/03/19 Patient : No - Smoking Cessation Smoking history: Current every day smoker Have you smoked in the past 12 months: Yes Aproximately how many cigarettes per day: 10 Cigars Per Day: 0 Hx Chewing Tobacco Use: No Initiated information on smoking cessation: Yes 'Breaking Loose' booklet given: 01/09/19 - Substance & Tx. History Hx Alcohol Use: Yes Hx Substance Use: Yes Substance Use Type: Alcohol, Cocaine, Marijuana Hx Substance Use Treatment: Yes (last detox [facility] 05/2018) - Substances Abused Alcohol Route: Oral Frequency: Daily Amount used: 6 cans beer (24 oz), 1 pt. vodka Age of first use: 18 Date of Last Use: 01/08/19 Cocaine Route: Smoking Frequency: Daily Amount used: $100 per day Age of first use: 35 Date of Last Use: 01/08/19 Marijuana/Hashish Route: Smoking Frequency: Daily Amount used: $10 Age of first use: 18 Date of Last Use: 01/09/19 Family Disease History - Family Disease History Family Disease History: Other: Mother ( RENAL) Admission Physical Exam [facility] - Vital Signs Vital Signs: Vital Signs - 24 hr 01/09/19 12:49 Temperature 97.6 F Pulse Rate 86 Respiratory 20 Rate Blood Pressure 136/82 - Physical General Appearance: Yes: Appropriately Dressed, Moderate Distress, Tremorous, Irritable, Sweating, Anxious HEENTM: Yes: Normal Voice, Nasal Congestion Respiratory: Yes: Normal Breath Sounds, No Respiratory Distress, Rhonchi Neck: Yes: No masses,lesions,Nodules Breast: Yes: Within Normal Limits Cardiology: Yes: Regular Rhythm, Regular Rate, S1, S2 Abdominal: Yes: Normal Bowel Sounds, Non Tender Genitourinary: Yes: Within Normal Limits Back: Yes: Normal Inspection Musculoskeletal: Yes: full range of Motion, Muscle Pain Extremities: Yes: Normal Capillary Refill, Non-Tender, Tremors Neurological: Yes: Fully Oriented, Alert, Normal Response Integumentary: Yes: Normal Color, Diaphoresis Lymphatic: Yes: Within Normal Limits - Diagnostic (1) Alcohol dependence with uncomplicated withdrawal Current Visit: Yes Status: Chronic (2) Asthma Current Visit: Yes Status: Chronic Qualifiers: Asthma severity: mild Asthma persistence: intermittent Asthma complication type: uncomplicated Qualified Code(s): J45.20 - Mild intermittent asthma, uncomplicated (3) Cannabis dependence, uncomplicated Current Visit: Yes Status: Chronic (4) Cocaine dependence, uncomplicated Current Visit: Yes Status: Chronic (5) Hypertension Current Visit: No Status: Chronic Qualifiers: Hypertension type: essential hypertension Comment: non compliant with her medication. she states she doesnt take any meds. (6) Nicotine dependence Current Visit: Yes Status: Chronic Qualifiers: Nicotine product type: cigarettes Substance use status: uncomplicated Qualified Code(s): F17.210 - Nicotine dependence, cigarettes, uncomplicated (7) Substance induced mood disorder Current Visit: No Status: Chronic (8) Depression (emotion) Current Visit: No Status: Suspected Qualifiers: Depression Type: dysthymia Qualified Code(s): F34.1 - Dysthymic disorder Cleared for Admission [facility] - Detox or Rehab [facility] Level of Care: Medically Managed Detox Regimen/Protocol: Librium [facility] Breath Alcohol Content Breath Alcohol Content: 0 Urine Pregancy Test - Result Urine Test Results: Negative - NO line present Urine Drug Screen - Results Drug Screen Negative: No Urine Drug Screen Results: THC-Marijuana, SUZY-Cocaine Inpatient Rehab Admission - Rehab Decision to Admit Inpatient rehab admission?: No
[2019-01-09] MEDS ORDERED: chlordiazePOXIDE HCL 10 MG CAPSULE PO PRN (14:10)
[2019-01-09] MEDS ORDERED: IBUPROFEN 400 MG TABLET (FP) PO PRN (14:10)
[2019-01-09] MEDS ORDERED: MAGNESIUM HYDROX 2400MG/30ML ORAL SUSPENSION 30 ML CUP PO PRN (14:10)
[2019-01-09] MEDS ORDERED: ONDANSETRON *ODT* 4 MG TABLET SL PRN (14:10)
[2019-01-09] MEDS ORDERED: DICYCLOMINE HCL 10 MG CAPSULE PO PRN (14:10)
[2019-01-09] MEDS ORDERED: BISMUTH SUBSALICYLATE 262 MG/15 ML BTL PO PRN (14:10)
[2019-01-09] MEDS ORDERED: ACETAMINOPHEN 325 MG TABLET (FP) PO PRN ×2 (14:10)
[2019-01-09] MEDS ORDERED: MAG HYDROX/AL HYDROX/SIMETH 30 ML UNIT-DOSE CUP PO PRN (14:10)
[2019-01-09] MEDS ORDERED: MAGNESIUM CITRATE 300 ML BOTTLE PO PRN (14:10)
[2019-01-09] MEDS ORDERED: MELATONIN 5 MG TABLETS PO PRN (14:10)
[2019-01-09] MEDS ORDERED: NICOTINE POLACRILEX 4 MG GUM BUC PRN (14:10)
[2019-01-09] MEDS ORDERED: MENTHOL/PHENOL 1 EACH UD MM PRN (14:10)
[2019-01-09] MEDS ORDERED: hydrOXYzine PAMOATE 25 MG CAPSULE (FP) PO PRN (14:10)
[2019-01-09] MEDS ORDERED: ALBUTEROL SO4 8 GM HFA INHALER IH PRN (14:17)
[2019-01-09] MEDS ORDERED: chlordiazePOXIDE HCL 25 MG CAPSULE PO ONE (15:00)
[2019-01-09] MEDS: IBUPROFEN 400 MG TABLET (FP) PO PRN ×2 (15:30→22:43)
[2019-01-09] MEDS: THIAMINE HCL 100 MG TABLET (FP) PO SCH (22:42)
[2019-01-09] MEDS: chlordiazePOXIDE HCL 25 MG CAPSULE PO SCH (22:48)
[2019-01-10] MEDS: chlordiazePOXIDE HCL 25 MG CAPSULE PO SCH ×2 (06:15→12:28)
[2019-01-10 10:41] LABS: HEMOGLOBIN 13.2 GM/dL (10.7-15.3); MCH 30.4 pg (25.7-33.7); MCHC 32.8 g/dl (32.0-36.0); MEAN CELL VOLUME 92.6 fl (80-96); MEAN PLT VOLUME 9.7 fl (7.5-11.1); PLATELET COUNT 233 K/MM3 (134-434); RBC 4.33 M/mm3 (3.60-5.2); RDW 13.2 % (11.6-15.6); WHITE BLOOD COUNT 7.6 K/mm3 (4.0-10.0)
[2019-01-10 10:55] LABS: ALK PHOS 111 U/L (45-117); ANION GAP 9 MMOL/L (8-16); BILIRUBIN,TOTAL 0.3 mg/dL (0.2-1); BLOOD UREA NITROGEN 14 mg/dL (7-18); CALCIUM 8.5 mg/dL (8.5-10.1); CHLORIDE 109 mmol/L (98-107); CO2 26 mmol/L (21-32); CREATININE 1.1 mg/dL (0.55-1.3); GLUCOSE,RANDOM 107 mg/dL (74-106); POTASSIUM 3.8 mmol/L (3.5-5.1); SGOT/AST 7 U/L (15-37); SGPT/ALT 10 U/L (13-61); SODIUM 144 mmol/L (136-145); TOT PROT 7.3 g/dl (6.4-8.2)
--- NOTE | 2019-01-10 11:29 | PN ---
S CIWA - CIWA Score Nausea/Vomitin-No Nausea/No Vomiting Muscle Tremors: 4-Moderate,w/Arms Extend Anxiety: 4-Mod. Anxious/Guarded Agitation: 4-Moderately Restless Paroxysmal Sweats: 3 Orientation: 0-Oriented Tacttile Disturbances: 0-None Auditory Disturbances: 0-None Visual Disturbances: 0-None Headache: 0-None Present CIWA-Ar Total Score: 15 [facility] Progress Note (SOAP) Subjective: sweats shakes interrupted sleep body aches Objective: 01/10/19 11:28 Vital Signs Temperature 97.9 F 01/10/19 09:53 Pulse Rate 88 01/10/19 09:53 Respiratory Rate 18 01/10/19 09:53 Blood Pressure 127/78 01/10/19 09:53 O2 Sat by Pulse Oximetry (%) Laboratory Tests 01/10/19 01/10/19 06:00 06:00 WBC 7.6 RBC 4.33 Hgb 13.2 Hct 40.0 MCV 92.6 MCH 30.4 MCHC 32.8 RDW 13.2 Plt Count 233 D MPV 9.7 Sodium 144 Potassium 3.8 Chloride 109 H Carbon Dioxide 26 Anion Gap 9 BUN 14 Creatinine 1.1 Creat Clearance w eGFR 54.74 Random Glucose 107 H Calcium 8.5 Total Bilirubin 0.3 AST 7 L ALT 10 L Alkaline Phosphatase 111 Total Protein 7.3 Albumin 4.0 labs noted aaox3 ambulating no acute distress Assessment: 01/10/19 11:29 withdrawal sx Plan: continue detox increase fluids
[2019-01-10] MEDS: NICOTINE 21 MG/24 HOURS TOPICAL PATCH TD SCH (12:01)
[2019-01-10] MEDS: PRENATAL VITAMINS W/ FOLIC ACID TABLET (FP) PO SCH (12:01)
[2019-01-10] MEDS: THIAMINE HCL 100 MG TABLET (FP) PO SCH (22:51)
[2019-01-10] MEDS: chlordiazePOXIDE 5 MG CAPSULE PO SCH (22:52)
[2019-01-11] MEDS: chlordiazePOXIDE 5 MG CAPSULE PO SCH ×2 (05:49→14:54)
[2019-01-11] MEDS: PRENATAL VITAMINS W/ FOLIC ACID TABLET (FP) PO SCH (10:24)
[2019-01-11] MEDS: NICOTINE 21 MG/24 HOURS TOPICAL PATCH TD SCH (10:24)
--- NOTE | 2019-01-11 12:54 | PN ---
[facility] CIWA - CIWA Score Nausea/Vomitin-No Nausea/No Vomiting Muscle Tremors: 3 Anxiety: 3 Agitation: 3 Paroxysmal Sweats: 2 Orientation: 0-Oriented Tacttile Disturbances: 0-None Auditory Disturbances: 0-None Visual Disturbances: 0-None Headache: 0-None Present CIWA-Ar Total Score: 11 S Progress Note (SOAP) Subjective: sweats agitation body aches Objective: 01/11/19 12:53 Vital Signs Temperature 98.4 F 01/11/19 10:13 Pulse Rate 89 01/11/19 10:13 Respiratory Rate 18 01/11/19 10:13 Blood Pressure 135/78 01/11/19 10:13 O2 Sat by Pulse Oximetry (%) Laboratory Tests 01/10/19 01/10/19 01/10/19 06:00 06:00 06:00 WBC 7.6 RBC 4.33 Hgb 13.2 Hct 40.0 MCV 92.6 MCH 30.4 MCHC 32.8 RDW 13.2 Plt Count 233 D MPV 9.7 Sodium 144 Potassium 3.8 Chloride 109 H Carbon Dioxide 26 Anion Gap 9 BUN 14 Creatinine 1.1 Creat Clearance w eGFR 54.74 Random Glucose 107 H Calcium 8.5 Total Bilirubin 0.3 AST 7 L ALT 10 L Alkaline Phosphatase 111 Total Protein 7.3 Albumin 4.0 RPR Titer Nonreactive aaox3 ambulating no acute distress Assessment: 01/11/19 12:53 withdrawal sx Plan: continue detox increase fluids
[2019-01-11] MEDS ORDERED: chlordiazePOXIDE HCL 10 MG CAPSULE PO PRN (21:00)
[2019-01-11] MEDS: THIAMINE HCL 100 MG TABLET (FP) PO SCH (22:39)
[2019-01-11] MEDS: chlordiazePOXIDE HCL 10 MG CAPSULE PO SCH (22:39)
[2019-01-12] MEDS: chlordiazePOXIDE HCL 10 MG CAPSULE PO SCH (05:32)
[2019-01-12 09:48] VITALS: BP 128/68; PULSE 93; TEMP 98.2
[2019-01-12] MEDS: PRENATAL VITAMINS W/ FOLIC ACID TABLET (FP) PO SCH (10:33)
[2019-01-12] MEDS: NICOTINE 21 MG/24 HOURS TOPICAL PATCH TD SCH (10:33)
--- NOTE | 2019-01-12 11:00 | DS ---
[facility] Detox Discharge Summary Admission Date: 01/09/19 Discharge Date: 01/12/19 - History Present History: Alcohol Dependence Pertinent Past History: Asthma, hypertension - Physical Exam Results Vital Signs: Vital Signs Temperature 98.2 F 01/12/19 09:47 Pulse Rate 93 H 01/12/19 09:47 Respiratory Rate 18 01/12/19 09:47 Blood Pressure 128/68 01/12/19 09:47 O2 Sat by Pulse Oximetry (%) - Treatment Hospital Course: Detox Protocol Followed, Detoxed Safely, Responded well, Discharged Condition Good, Rehab Referral Accepted Patient [facility] - Medication Discharge Medications: Ambulatory Orders Albuterol Sulfate Inhaler - [Ventolin HFA Inhaler -] 2 inh PO Q4H PRN 05/21/18 - Diagnosis (1) Alcohol dependence with uncomplicated withdrawal Current Visit: Yes Status: Chronic (2) Cocaine dependence, uncomplicated Current Visit: Yes Status: Chronic (3) Nicotine dependence Current Visit: Yes Status: Chronic Qualifiers: Nicotine product type: cigarettes Substance use status: uncomplicated Qualified Code(s): F17.210 - Nicotine dependence, cigarettes, uncomplicated (4) Hypertension Current Visit: No Status: Chronic Qualifiers: Hypertension type: essential hypertension - AMA Did Patient Leave Against Medical Advice: No (Early discharge to rehab due to bed availability, pt. stable with no issue )
== END 2019-01-12 11:08 | disposition other institution (70) | DRG 774 ==
LOC: YASAS 12:19 → Y6N 14:22
PROVIDERS: ADMIT Surgery; ATTEND Surgery
PROC: HZ2ZZZZ Detoxification Services for Substance Abuse Treatment (ICD-10-PCS; principal; 2019-01-09)
DX: F10.230 Alcohol dependence with withdrawal, uncomplicated (principal); F14.20 Cocaine dependence, uncomplicated; F12.20 Cannabis dependence, uncomplicated; F17.210 Nicotine dependence, cigarettes, uncomplicated; F19.24 Other psychoactive substance dependence with psychoactive substance-induced mood disorder; F34.1 Dysthymic disorder; I10 Essential (primary) hypertension; J45.20 Mild intermittent asthma, uncomplicated
CPT/HCPCS: 36415; 80053; 85027; 86593

== ENCOUNTER 2019-01-12 11:14 | Inpatient (IN) | payer OTHER ==
[2019-01-12] MEDS ORDERED: NICOTINE POLACRILEX 2 MG GUM BUC PRN (11:41)
[2019-01-12] MEDS ORDERED: MAG HYDROX/AL HYDROX/SIMETH 30 ML UNIT-DOSE CUP PO PRN (11:41)
[2019-01-12] MEDS ORDERED: MAGNESIUM HYDROX 2400MG/30ML ORAL SUSPENSION 30 ML CUP PO PRN (11:41)
[2019-01-12] MEDS ORDERED: guaiFENesin 200 MG/10 ML 10 ML UNIT-DOSE CUPS PO PRN (11:41)
[2019-01-12] MEDS ORDERED: P-EPHED 60MG/TRIPROLIDI 2.5MG TABLET PO PRN (11:41)
[2019-01-12] MEDS ORDERED: IBUPROFEN 400 MG TABLET (FP) PO PRN (11:41)
[2019-01-12] MEDS ORDERED: hydrOXYzine PAMOATE 50 MG CAPSULE (FP) PO PRN (11:41)
[2019-01-12] MEDS ORDERED: LOPERAMIDE HCL 2 MG CAPSULE PO PRN (11:41)
[2019-01-12] MEDS ORDERED: MAGNESIUM CITRATE 300 ML BOTTLE PO PRN (11:41)
[2019-01-12] MEDS ORDERED: MENTHOL/PHENOL 1 EACH UD MM PRN (11:41)
[2019-01-12] MEDS ORDERED: ACETAMINOPHEN 325 MG TABLET (FP) PO PRN (11:41)
[2019-01-12] MEDS ORDERED: ALBUTEROL SO4 8 GM HFA INHALER IH PRN (11:42)
--- NOTE | 2019-01-12 14:40 | HP ---
[facility] Rehab Assess/Revision - Admission History Admitted to Rehab from: [facility] Date of Admission to Rehab: 01/12/19 - Vital signs Vital Signs: Vital Signs Period Temp Pulse Resp BP Sys/Sheldon Pulse Ox Last 24 Hr 98.8 F 82 18 124/83 - Findings Detox History & Physical reviewed: Yes Concur with findings: Yes Comments/Additional Findings: for rehab as protocol Inpatient Rehab Admission - Rehab Decision to Admit Inpatient rehab admission?: Yes - Initial Determination Are CD services needed?: Yes Free of communicable disease: Yes Not in need of hospitalization: Yes - Rehab Admission Criteria Previous failed treatment: Yes Poor recovery environment: Yes Comorbidities: Yes Lacks judgement: No Patient is meeting Inpatient Rehab admission criteria:: Yes
[2019-01-12] MEDS ORDERED: MELATONIN 5 MG TABLETS PO PRN (22:00)
[2019-01-12] MEDS ORDERED: THIAMINE HCL 100 MG TABLET (FP) PO SCH (22:00)
[2019-01-13 06:58] VITALS: BP 125/84; PULSE 85; TEMP 97.9
[2019-01-13] MEDS ORDERED: NICOTINE 14 MG/24 HOURS TOPICAL PATCH TD SCH (10:00)
[2019-01-13] MEDS ORDERED: PRENATAL VITAMINS W/ FOLIC ACID TABLET (FP) PO SCH (10:00)
--- NOTE | 2019-01-13 14:46 | PN ---
[facility] Progress Note Note: patient did not want to continue treatment,stated she is doing well,would like to leave to go home and stay with her daughter all attempts to convince patient to stay by nurse,counselor and myself with no avail Vital Signs Temperature 97.9 F 01/13/19 06:58 Pulse Rate 85 01/13/19 06:58 Respiratory Rate 18 01/13/19 06:58 Blood Pressure 125/84 01/13/19 06:58 O2 Sat by Pulse Oximetry (%) the high risk of elapsing is high,patient understood advice to see her medical provider for medical problem,history of asthma and had albuterol inhaler with her to emergency room if any medical emergency patient signed release ama left the unit in good and stable condition This is the discharge summary of Sandra Cisneros date of admission 01/12/19 date of discharge 01/13/19 diagnosis alcohol dependence cocaine dependence cannabis dependence hypertension nicotine dependence depression patient signed release AMA
== END 2019-01-13 14:30 | disposition left against medical advice (07) | DRG 770 ==
LOC: YASAS 11:14 → Y3E 11:16
PROVIDERS: ADMIT Neuromusculoskeletal Medicine & OMM; ATTEND Neuromusculoskeletal Medicine & OMM
PROC: HZ42ZZZ Group Counseling for Substance Abuse Treatment, Cognitive-Behavioral (ICD-10-PCS; principal; 2019-01-12)
DX: F10.20 Alcohol dependence, uncomplicated (principal); F14.20 Cocaine dependence, uncomplicated; F12.20 Cannabis dependence, uncomplicated; F17.210 Nicotine dependence, cigarettes, uncomplicated; F32.9 Major depressive disorder, single episode, unspecified; I10 Essential (primary) hypertension

== ENCOUNTER 2019-01-25 11:17 | Inpatient (IN) | payer OTHER ==
[2019-01-25 11:47] VITALS: BMI 27.6
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
[2019-01-25] MEDS ORDERED: MAGNESIUM HYDROX 2400MG/30ML ORAL SUSPENSION 30 ML CUP PO PRN (18:30)
[2019-01-25] MEDS ORDERED: ACETAMINOPHEN 325 MG TABLET (FP) PO PRN ×2 (18:30)
[2019-01-25] MEDS ORDERED: BISMUTH SUBSALICYLATE 524 MG/30 ML UD PO PRN (18:30)
[2019-01-25] MEDS ORDERED: MAG HYDROX/AL HYDROX/SIMETH 30 ML UNIT-DOSE CUP PO PRN (18:30)
[2019-01-25] MEDS ORDERED: MAGNESIUM CITRATE 300 ML BOTTLE PO PRN (18:30)
[2019-01-25] MEDS ORDERED: NICOTINE POLACRILEX 2 MG GUM BUC PRN (18:30)
[2019-01-25] MEDS ORDERED: hydrOXYzine PAMOATE 25 MG CAPSULE (FP) PO PRN (18:30)
[2019-01-25] MEDS ORDERED: chlordiazePOXIDE HCL 10 MG CAPSULE PO PRN (18:30)
[2019-01-25] MEDS ORDERED: MENTHOL/PHENOL 1 EACH UD MM PRN (18:30)
[2019-01-25] MEDS ORDERED: ALBUTEROL SO4 0.083% IH SOL 2.5 MG/3 ML VIAL.NEB. NEB PRN (18:32)
[2019-01-25] MEDS ORDERED: PENICILLIN V POTASSIUM 500 MG TABLET PO SCH (22:00)
[2019-01-25] MEDS: MELATONIN 5 MG TABLETS PO PRN (22:22)
[2019-01-25] MEDS: chlordiazePOXIDE HCL 25 MG CAPSULE PO SCH (22:22)
[2019-01-25] MEDS: THIAMINE HCL 100 MG TABLET (FP) PO SCH (22:22)
[2019-01-25] MEDS ORDERED: PENICILLIN V POTASSIUM 250 MG TABLET PO SCH (22:35)
[2019-01-25] MEDS: PENICILLIN V POTASSIUM 500 MG TABLET PO SCH (22:42)
[2019-01-26] MEDS: IBUPROFEN 400 MG TABLET (FP) PO PRN ×3 (03:42→19:56)
[2019-01-26] MEDS: chlordiazePOXIDE HCL 25 MG CAPSULE PO SCH ×2 (05:48→14:38)
[2019-01-26] MEDS: PRENATAL VITAMINS W/ FOLIC ACID TABLET (FP) PO SCH (10:25)
[2019-01-26] MEDS: PENICILLIN V POTASSIUM 500 MG TABLET PO SCH ×4 (10:28→22:01)
[2019-01-26] MEDS ORDERED: METHOCARBAMOL 500 MG TABLET PO PRN (10:38)
[2019-01-26 11:00] LABS: ALBUMIN 3.3 g/dl (3.4-5.0); ALK PHOS 84 U/L (45-117); ANION GAP 7 MMOL/L (8-16); BILIRUBIN,TOTAL 0.2 mg/dL (0.2-1); BLOOD UREA NITROGEN 21 mg/dL (7-18); CALCIUM 8.1 mg/dL (8.5-10.1); CHLORIDE 110 mmol/L (98-107); CO2 22 mmol/L (21-32); GLUCOSE,RANDOM 126 mg/dL (74-106); POTASSIUM 4.5 mmol/L (3.5-5.1); SGOT/AST 7 U/L (15-37); SGPT/ALT 12 U/L (13-61); SODIUM 139 mmol/L (136-145); TOT PROT 6.1 g/dl (6.4-8.2)
[2019-01-26] MEDS ORDERED: NAPROXEN 375 MG TABLET (FP) PO ONE (11:00)
[2019-01-26 11:10] LABS: HEMATOCRIT 36.8 % (32.4-45.2); HEMOGLOBIN 12.3 GM/dL (10.7-15.3); MCH 30.5 pg (25.7-33.7); MCHC 33.4 g/dl (32.0-36.0); MEAN CELL VOLUME 91.2 fl (80-96); MEAN PLT VOLUME 9.3 fl (7.5-11.1); PLATELET COUNT 199 K/MM3 (134-434); RBC 4.03 M/mm3 (3.60-5.2); RDW 13.2 % (11.6-15.6); WHITE BLOOD COUNT 5.6 K/mm3 (4.0-10.0)
--- NOTE | 2019-01-26 15:26 | PN ---
S CIWA - CIWA Score Nausea/Vomitin-No Nausea/No Vomiting Muscle Tremors: 2 Anxiety: 4-Mod. Anxious/Guarded Agitation: 3 Paroxysmal Sweats: 2 Orientation: 0-Oriented Tacttile Disturbances: 1-Very Mild Itch/Numbness Auditory Disturbances: 0-None Visual Disturbances: 2-Mild Sensitivity Headache: 0-None Present CIWA-Ar Total Score: 14 BHS Progress Note (SOAP) Subjective: Anxious, Restless, Sweating, Tremors. Objective: PATIENT A & O X 3, OBSERVED AMBULATING ON UNIT. IN NO ACUTE DISTRESS. 01/26/19 15:27 Vital Signs Temperature 99.5 F 01/26/19 15:04 Pulse Rate 81 01/26/19 15:04 Respiratory Rate 18 01/26/19 15:04 Blood Pressure 140/86 01/26/19 15:04 O2 Sat by Pulse Oximetry (%) Laboratory Tests 01/26/19 01/26/19 01/26/19 07:30 07:30 07:30 WBC 5.6 RBC 4.03 Hgb 12.3 Hct 36.8 MCV 91.2 MCH 30.5 MCHC 33.4 RDW 13.2 Plt Count 199 MPV 9.3 Sodium 139 Potassium 4.5 Chloride 110 H Carbon Dioxide 22 Anion Gap 7 L BUN 21 H Creatinine 1.0 Creat Clearance w eGFR 61.10 Random Glucose 126 H Calcium 8.1 L Total Bilirubin 0.2 AST 7 L ALT 12 L Alkaline Phosphatase 84 Total Protein 6.1 L Albumin 3.3 L RPR Titer Nonreactive LABS NOTED. Assessment: 01/26/19 15:28 WITHDRAWAL SYMPTOMS. HYPOCALCEMIA. Plan: CONTINUE DETOX. INCREASE DAILY PO FLUID INTAKE. OSCAL, 250 MG PO BID FOR HYPOCALCEMIA. PATIENT ADVISED TO INTERMITTENTLY APPLY ICE (COVERED IN CLOTH/TOWEL) TO INJURED AREA ON RIGHT SIDE OF FACE FOR A FEW MINUTES AT A TIME FOR RESIDUAL SWELLING IN THAT AREA.
[2019-01-26] MEDS ORDERED: NAPROXEN 375 MG TABLET (FP) PO SCH (22:00)
[2019-01-26] MEDS: CALCIUM 250MG/VIT-D 125 UNITS 1 COMBO TABLET PO SCH (22:01)
[2019-01-26] MEDS: THIAMINE HCL 100 MG TABLET (FP) PO SCH (22:01)
[2019-01-26] MEDS: chlordiazePOXIDE 5 MG CAPSULE PO SCH (22:02)
[2019-01-26] MEDS: MELATONIN 5 MG TABLETS PO PRN (22:02)
[2019-01-27] MEDS: chlordiazePOXIDE 5 MG CAPSULE PO SCH ×2 (05:48→14:22)
[2019-01-27] MEDS: IBUPROFEN 400 MG TABLET (FP) PO PRN ×2 (05:48→14:22)
[2019-01-27] MEDS: PRENATAL VITAMINS W/ FOLIC ACID TABLET (FP) PO SCH (10:27)
[2019-01-27] MEDS: PENICILLIN V POTASSIUM 500 MG TABLET PO SCH ×4 (10:28→22:31)
[2019-01-27] MEDS: CALCIUM 250MG/VIT-D 125 UNITS 1 COMBO TABLET PO SCH ×2 (10:29→22:30)
--- NOTE | 2019-01-27 12:43 | PN ---
S CIWA - CIWA Score Nausea/Vomitin-Mild Nausea/No Vomiting Muscle Tremors: 2 Anxiety: 2 Agitation: 2 Paroxysmal Sweats: 1-Minimal Palms Moist Orientation: 0-Oriented Tacttile Disturbances: 0-None Auditory Disturbances: 0-None Visual Disturbances: 0-None Headache: 2-Mild CIWA-Ar Total Score: 10 S Progress Note (SOAP) Subjective: feeling better social with peers in day room sleep better more energy Objective: 01/27/19 12:47 Vital Signs Temperature 99.6 F 01/27/19 09:50 Pulse Rate 89 01/27/19 09:50 Respiratory Rate 18 01/27/19 09:50 Blood Pressure 114/76 01/27/19 09:50 O2 Sat by Pulse Oximetry (%) Laboratory Last Values WBC 5.6 K/mm3 (4.0-10.0) 01/26/19 07:30 RBC 4.03 M/mm3 (3.60-5.2) 01/26/19 07:30 Hgb 12.3 GM/dL (10.7-15.3) 01/26/19 07:30 Hct 36.8 % (32.4-45.2) 01/26/19 07:30 MCV 91.2 fl (80-96) 01/26/19 07:30 MCH 30.5 pg (25.7-33.7) 01/26/19 07:30 MCHC 33.4 g/dl (32.0-36.0) 01/26/19 07:30 RDW 13.2 % (11.6-15.6) 01/26/19 07:30 Plt Count 199 K/MM3 (134-434) 01/26/19 07:30 MPV 9.3 fl (7.5-11.1) 01/26/19 07:30 Sodium 139 mmol/L (136-145) 01/26/19 07:30 Potassium 4.5 mmol/L (3.5-5.1) 01/26/19 07:30 Chloride 110 mmol/L (98-107) H 01/26/19 07:30 Carbon Dioxide 22 mmol/L (21-32) 01/26/19 07:30 Anion Gap 7 MMOL/L (8-16) L 01/26/19 07:30 BUN 21 mg/dL (7-18) H 01/26/19 07:30 Creatinine 1.0 mg/dL (0.55-1.3) 01/26/19 07:30 Creat Clearance w eGFR 61.10 (>60) 01/26/19 07:30 Random Glucose 126 mg/dL (74-106) H 01/26/19 07:30 Calcium 8.1 mg/dL (8.5-10.1) L 01/26/19 07:30 Total Bilirubin 0.2 mg/dL (0.2-1) 01/26/19 07:30 AST 7 U/L (15-37) L 01/26/19 07:30 ALT 12 U/L (13-61) L 01/26/19 07:30 Alkaline Phosphatase 84 U/L (45-117) 01/26/19 07:30 Total Protein 6.1 g/dl (6.4-8.2) L 01/26/19 07:30 Albumin 3.3 g/dl (3.4-5.0) L 01/26/19 07:30 RPR Titer Nonreactive (NONREACTIVE) 01/26/19 07:30 lab noted Assessment: 01/27/19 12:48 withdrawal sx Plan: continue detox
[2019-01-27] MEDS ORDERED: chlordiazePOXIDE HCL 10 MG CAPSULE PO PRN (21:00)
[2019-01-27] MEDS: chlordiazePOXIDE HCL 10 MG CAPSULE PO SCH (21:30)
[2019-01-27] MEDS: THIAMINE HCL 100 MG TABLET (FP) PO SCH (22:30)
[2019-01-27] MEDS: MELATONIN 5 MG TABLETS PO PRN (22:32)
[2019-01-28] MEDS: chlordiazePOXIDE HCL 10 MG CAPSULE PO SCH (04:22)
[2019-01-28] MEDS: IBUPROFEN 400 MG TABLET (FP) PO PRN ×2 (04:22→10:35)
[2019-01-28 09:10] VITALS: BP 118/82; PULSE 88; TEMP 97
[2019-01-28] MEDS: PRENATAL VITAMINS W/ FOLIC ACID TABLET (FP) PO SCH (10:33)
[2019-01-28] MEDS: CALCIUM 250MG/VIT-D 125 UNITS 1 COMBO TABLET PO SCH (10:33)
[2019-01-28] MEDS: PENICILLIN V POTASSIUM 500 MG TABLET PO SCH (10:34)
--- NOTE | 2019-01-28 12:14 | DS ---
[facility] Detox Discharge Summary Admission Date: 01/25/19 Discharge Date: 01/28/19 - History Present History: Alcohol Dependence Additional Comments: 43 years old female admitted on 01/25/19/ for alcohol withdrawal stabilization completed detox regimen aftercare [facility] - Physical Exam Results Vital Signs: Vital Signs Temperature 97.0 F L 01/28/19 09:10 Pulse Rate 88 01/28/19 09:10 Respiratory Rate 18 01/28/19 09:10 Blood Pressure 118/82 01/28/19 09:10 O2 Sat by Pulse Oximetry (%) Pertinent Admission Physical Exam Findings: alcohol withdrawal sx Laboratory Last Values WBC 5.6 K/mm3 (4.0-10.0) 01/26/19 07:30 RBC 4.03 M/mm3 (3.60-5.2) 01/26/19 07:30 Hgb 12.3 GM/dL (10.7-15.3) 01/26/19 07:30 Hct 36.8 % (32.4-45.2) 01/26/19 07:30 MCV 91.2 fl (80-96) 01/26/19 07:30 MCH 30.5 pg (25.7-33.7) 01/26/19 07:30 MCHC 33.4 g/dl (32.0-36.0) 01/26/19 07:30 RDW 13.2 % (11.6-15.6) 01/26/19 07:30 Plt Count 199 K/MM3 (134-434) 01/26/19 07:30 MPV 9.3 fl (7.5-11.1) 01/26/19 07:30 Sodium 139 mmol/L (136-145) 01/26/19 07:30 Potassium 4.5 mmol/L (3.5-5.1) 01/26/19 07:30 Chloride 110 mmol/L (98-107) H 01/26/19 07:30 Carbon Dioxide 22 mmol/L (21-32) 01/26/19 07:30 Anion Gap 7 MMOL/L (8-16) L 01/26/19 07:30 BUN 21 mg/dL (7-18) H 01/26/19 07:30 Creatinine 1.0 mg/dL (0.55-1.3) 01/26/19 07:30 Creat Clearance w eGFR 61.10 (>60) 01/26/19 07:30 Random Glucose 126 mg/dL (74-106) H 01/26/19 07:30 Calcium 8.1 mg/dL (8.5-10.1) L 01/26/19 07:30 Total Bilirubin 0.2 mg/dL (0.2-1) 01/26/19 07:30 AST 7 U/L (15-37) L 01/26/19 07:30 ALT 12 U/L (13-61) L 01/26/19 07:30 Alkaline Phosphatase 84 U/L (45-117) 01/26/19 07:30 Total Protein 6.1 g/dl (6.4-8.2) L 01/26/19 07:30 Albumin 3.3 g/dl (3.4-5.0) L 01/26/19 07:30 RPR Titer Nonreactive (NONREACTIVE) 01/26/19 07:30 lab noted - Treatment Hospital Course: Detox Protocol Followed, Detoxed Safely, Responded well, Discharged Condition Good, Rehab Referral Accepted Patient has Accepted a Rehab Referral to: [facility] - Medication Discharge Medications: Ambulatory Orders Albuterol Sulfate Inhaler - [Ventolin Hfa Inhaler -] 1 - 2 inh PO Q4H 01/25/19 Penicillin V Potassium [Pen Vee K -] 250 mg PO QID #28 tablet 01/25/19 - Diagnosis (1) Alcohol dependence with uncomplicated withdrawal Current Visit: Yes Status: Acute (2) Asthma Current Visit: Yes Status: Chronic Qualifiers: Asthma severity: mild Asthma persistence: intermittent Asthma complication type: uncomplicated Qualified Code(s): J45.20 - Mild intermittent asthma, uncomplicated (3) Hypertension Current Visit: Yes Status: Chronic Qualifiers: Hypertension type: essential hypertension (4) Substance induced mood disorder Current Visit: Yes Status: Suspected - AMA Did Patient Leave Against Medical Advice: No
== END 2019-01-28 12:05 | disposition home or self-care (01) | DRG 775 ==
LOC: YASAS 11:17 → Y3N 18:54
PROVIDERS: ADMIT Surgery; ATTEND Surgery
PROC: HZ2ZZZZ Detoxification Services for Substance Abuse Treatment (ICD-10-PCS; principal; 2019-01-25)
DX: F10.230 Alcohol dependence with withdrawal, uncomplicated (principal); F12.20 Cannabis dependence, uncomplicated; F17.210 Nicotine dependence, cigarettes, uncomplicated; F19.24 Other psychoactive substance dependence with psychoactive substance-induced mood disorder; E83.51 Hypocalcemia; I10 Essential (primary) hypertension; J45.20 Mild intermittent asthma, uncomplicated; Z91.013 Allergy to seafood
CPT/HCPCS: 36415; 80053; 84703; 85027; 86593; 96372; 99281-25

== ENCOUNTER 2019-01-25 13:09 | Emergency (ER) | payer OTHER ==
[2019-01-25 13:29] VITALS: BP 150/90; PULSE 79; TEMP 97.8; BMI 27.6
[2019-01-25] MEDS ORDERED: KETOROLAC TROMETHAMINE 60 MG/2 ML VIAL IM ONE (14:19)
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
[2019-01-25] MEDS ORDERED: KETOROLAC TROMETHAMINE 60 MG/2 ML VIAL ONE (14:22)
== END 2019-01-25 16:38 | disposition home or self-care (01) ==
LOC: JERFT 13:09
PROC: 3E0233Z Introduction of Anti-inflammatory into Muscle, Percutaneous Approach (ICD-10-PCS; principal; 2019-01-25)
DX: S09.93XD Unspecified injury of face, subsequent encounter (principal); Y04.0XXD Assault by unarmed brawl or fight, subsequent encounter; F14.10 Cocaine abuse, uncomplicated; F10.10 Alcohol abuse, uncomplicated; F12.10 Cannabis abuse, uncomplicated
CPT/HCPCS: 84703; 96372; 99281-25

== ENCOUNTER 2019-05-01 10:55 | Inpatient (IN) | payer OTHER ==
[2019-05-01 12:32] VITALS: BMI 26.3
--- NOTE | 2019-05-01 14:38 | HP ---
CIWA Score Nausea/Vomitin Muscle Tremors: None Anxiety: 4-Mod. Anxious/Guarded Agitation: 4-Moderately Restless Paroxysmal Sweats: No Perspiration Orientation: 1-Uncertain about Date Tacttile Disturbances: 1-Very Mild Itch/Numbness Auditory Disturbances: 0-None Visual Disturbances: 0-None Headache: 3-Moderate CIWA-Ar Total Score: 15 - Admission Criteria [facility] Guidelines: Admission for Medically Managed Detox: Requires at least one of the followin. CIWA greater than 12 2. Seizures within the past 24 hours 3. Delirium tremens within the past 24 hours 4. Hallucinations within the past 24 hours 5. Acute intervention needed for co occurring medical disorder 6. Acute intervention needed for co occurring psychiatric disorder 7. Severe withdrawal that cannot be handled at a lower level of care (continued vomiting, continued diarrhea, abnormal vital signs) requiring intravenous medication and/or fluids 8. Admission ROS [facility] - [facility] Chief Complaint: seeking help for alcohol and cocaine use Allergies/Adverse Reactions: Allergies Allergy/AdvReac Type Severity Reaction Status Date / Time No Known Drug Allergies Allergy Verified 05/01/19 12:20 shellfish derived Allergy Verified 05/01/19 12:20 History of Present Illness: 43 y/o/f here for alcohol and cocaine use. She was last here for detox in January of this year and was able to say drug free until the end of March when she went through a breakup and started using alcohol and cocaine again. She has been drinking two 24 oz cans of beer daily and a pint to half a pint of liquor every other day. She last had a drink yesterday. She denies any history of seizures and blackouts. She has been using $100 of cocaine everyday which she uses by smoking. She last used cocaine yesterday. She smokes Marijuana twice a week and last used it a few days ago. She smokes half a pack of cigarettes daily. PMHx of Asthma for which she takes albuterol as needed. She denies any history of surgeries. She is living with family and is currently unemployed. - Ebola screening Have you traveled outside of the country in the last 21 days: No Have you had contact with anyone from an Ebola affected area: No Do you have a fever: No - Review of Systems Constitutional: Chills EENT: reports: No Symptoms Reported Respiratory: reports: Cough Cardiac: reports: No Symptoms Reported GI: reports: Nausea, Abdominal cramping Musculoskeletal: reports: No Symptoms Reported Integumentary: reports: No Symptoms Reported Neuro: reports: Headache Endocrine: reports: No Symptoms Reported Hematology: reports: No Symptoms Reported Psychiatric: reports: Agitated, Anxious Other Systems: Reviewed and Negative Patient History - Patient Medical History Hx Anemia: No Hx Asthma: Yes Hx Chronic Obstructive Pulmonary Disease (COPD): No Hx Cancer: No Hx Cardiac Disorders: No Hx Congestive Heart Failure: No Hx Hypertension: No Hx Hypercholesterolemia: No Hx Pacemaker: No HX Cerebrovascular Accident: No Hx Seizures: No Hx Dementia: No Hx Diabetes: No Hx Gastrointestinal Disorders: No Hx Liver Disease: No Hx Genitourinary Disorders: No Hx Sexually Transmitted Disorders: No Hx Renal Disease (ESRD): No Hx Thyroid Disease: No Hx Human Immunodeficiency Virus (HIV): No (pt denies) Hx Hepatitis C: No (pt denies) Hx Depression: No Hx Suicide Attempt: No Hx Bipolar Disorder: No Hx Schizophrenia: No - Patient Surgical History Past Surgical History: No Hx Neurologic Surgery: No Hx Cataract Extraction: No Hx Cardiac Surgery: No Hx Lung Surgery: No Hx Breast Surgery: No Hx Breast Biopsy: No Hx Abdominal Surgery: No Hx Appendectomy: No Hx Cholecystectomy: No Hx Genitourinary Surgery: No Hx Section: No Hx Orthopedic Surgery: No Anesthesia Reaction: No - PPD History Previous Implant?: Yes Documented Results: Negative w/o proof Implanted On Prior [facility] Admission?: Yes Date: 02/28/18 Results: 0mm PPD to be Administered?: No - Reproductive History Patient is a Female of Child Bearing Age (11 -55 yrs old): Yes Last Menstrual Period: 04/21/19 Patient : No - Smoking Cessation Smoking history: Current every day smoker Have you smoked in the past 12 months: Yes Aproximately how many cigarettes per day: 10 Cigars Per Day: 0 Hx Chewing Tobacco Use: No Initiated information on smoking cessation: Yes 'Breaking Loose' booklet given: 05/01/19 - Substances abused Alcohol Substance route: Oral Frequency: Daily Amount used: 1 PINT VODKA, 2/24OZ BEER Age of first use: 19 Date of last use: 04/30/19 Crack Substance route: Smoking Frequency: Daily Amount used: $100 Age of first use: 35 Date of last use: 04/30/19 Family Disease History - Family Disease History Family Disease History: Other: Mother ( RENAL) Admission Physical Exam [facility] - Vital Signs Vital Signs: Vital Signs - 24 hr 05/01/19 12:14 Temperature 91.1 F L - Physical General Appearance: Yes: Mild Distress, Other (restless) HEENTM: Yes: EOMI, Normocephalic Respiratory: Yes: Lungs Clear, Normal Breath Sounds, No Accessory Muscle Use Neck: Yes: Supple Cardiology: Yes: Regular Rhythm, Regular Rate, S1, S2 Abdominal: Yes: Normal Bowel Sounds, Non Tender, Soft Extremities: Yes: Normal Capillary Refill 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 NML intact, Alert, Motor Strength 5/5 Integumentary: Yes: Dry - Diagnostic (1) Cocaine use disorder Current Visit: Yes Status: Acute (2) Alcohol dependence with uncomplicated withdrawal Current Visit: No Status: Acute (3) Asthma Current Visit: No Status: Chronic Qualifiers: Asthma severity: mild Asthma persistence: intermittent Asthma complication type: uncomplicated Qualified Code(s): J45.20 - Mild intermittent asthma, uncomplicated (4) Nicotine dependence Current Visit: No Status: Chronic Qualifiers: Nicotine product type: cigarettes Substance use status: uncomplicated Qualified Code(s): F17.210 - Nicotine dependence, cigarettes, uncomplicated Cleared for Admission [facility] - Detox or Rehab [facility] Level of Care: Medically Managed Detox Regimen/Protocol: Librium Breathalyzer - Breathalyzer Breathalyzer: 0 POC Urine test - Test device test lot number: [id number] Expiration date: 06/15/20 - Control test control: Yes Urine Drug Screen - Test Device Lot number: [id number] Expiration date: 02/12/21 - Control Is test valid?: Yes - Results Drug screen NEGATIVE: No Urine drug screen results: SUZY-Cocaine Inpatient Rehab Admission - Rehab Decision to Admit Inpatient rehab admission?: No
[2019-05-01] MEDS ORDERED: BISMUTH SUBSALICYLATE 262 MG/15 ML BTL PO PRN (15:07)
[2019-05-01] MEDS ORDERED: hydrOXYzine HCL 25 MG TABLET (FP) PO PRN (15:07)
[2019-05-01] MEDS ORDERED: IBUPROFEN 400 MG TABLET (FP) PO PRN (15:07)
[2019-05-01] MEDS ORDERED: MAGNESIUM HYDROX 2400MG/30ML ORAL SUSPENSION 30 ML CUP PO PRN (15:07)
[2019-05-01] MEDS ORDERED: chlordiazePOXIDE HCL 25 MG CAPSULE PO PRN (15:07)
[2019-05-01] MEDS ORDERED: ACETAMINOPHEN 325 MG TABLET (FP) PO PRN ×2 (15:07)
[2019-05-01] MEDS ORDERED: MENTHOL/PHENOL 1 EACH UD MM PRN (15:07)
[2019-05-01] MEDS ORDERED: MAG HYDROX/AL HYDROX/SIMETH 30 ML UNIT-DOSE CUP PO PRN (15:07)
[2019-05-01] MEDS ORDERED: MAGNESIUM CITRATE 300 ML BOTTLE PO PRN (15:07)
[2019-05-01] MEDS ORDERED: METHOCARBAMOL 500 MG TABLET PO PRN (15:07)
--- NOTE | 2019-05-01 15:44 | PN ---
Teaching Attending Note Name of Resident: Henrique Nair ATTENDING PHYSICIAN STATEMENT I saw and evaluated the patient. I reviewed the resident's note and discussed the case with the resident. I agree with the resident's findings and plan as documented. SUBJECTIVE: this 43 years old female with alcohol and cocaine dependence with multiple admissions in detox and rehab in the past, seeking help to stopped OBJECTIVE: withdrawal signs and symptom ASSESSMENT AND PLAN: this 43 years old female with alcohol,cocaine dependence,needed in patient detox medical managed,librium regimen
[2019-05-01] MEDS: NICOTINE 7 MG/24 HOURS TOPICAL PATCH TD SCH (17:31)
[2019-05-01] MEDS: ALBUTEROL SO4 8 GM HFA INHALER IH SCH ×3 (17:33→22:36)
[2019-05-01] MEDS: chlordiazePOXIDE HCL 25 MG CAPSULE PO SCH ×2 (17:33→22:25)
[2019-05-01] MEDS: THIAMINE HCL 100 MG TABLET (FP) PO SCH (22:25)
[2019-05-01] MEDS: MELATONIN 5 MG TABLETS PO PRN (22:26)
[2019-05-02] MEDS: ALBUTEROL SO4 8 GM HFA INHALER IH SCH ×6 (04:08→22:35)
[2019-05-02] MEDS: chlordiazePOXIDE HCL 25 MG CAPSULE PO SCH ×4 (05:39→22:10)
[2019-05-02] MEDS: NICOTINE 7 MG/24 HOURS TOPICAL PATCH TD SCH (10:17)
[2019-05-02] MEDS: PRENATAL VITAMINS W/ FOLIC ACID TABLET (FP) PO SCH (10:17)
[2019-05-02 10:36] LABS: ALBUMIN 3.5 g/dl (3.4-5.0); BILIRUBIN,TOTAL 0.4 mg/dL (0.2-1); BLOOD UREA NITROGEN 13.1 mg/dL (7-18); CALCIUM 8.6 mg/dL (8.5-10.1); CREATININE 0.9 mg/dL (0.55-1.3); POTASSIUM 4.2 mmol/L (3.5-5.1); TOT PROT 6.7 g/dl (6.4-8.2)
[2019-05-02 10:49] LABS: HEMATOCRIT 38.1 % (32.4-45.2); HEMOGLOBIN 12.7 GM/dL (10.7-15.3); MCH 30.7 pg (25.7-33.7); MCHC 33.3 g/dl (32.0-36.0); MEAN PLT VOLUME 9.9 fl (7.5-11.1); PLATELET COUNT 181 K/MM3 (134-434); RBC 4.14 M/mm3 (3.60-5.2); RDW 13.9 % (11.6-15.6); WHITE BLOOD COUNT 3.7 K/mm3 (4.0-10.0)
--- NOTE | 2019-05-02 12:36 | PN ---
S CIWA - CIWA Score Nausea/Vomitin-Mild Nausea/No Vomiting Muscle Tremors: 2 Anxiety: 3 Agitation: 2 Paroxysmal Sweats: 2 Orientation: 0-Oriented Tacttile Disturbances: 1-Very Mild Itch/Numbness Auditory Disturbances: 0-None Visual Disturbances: 0-None Headache: 1-Very Mild CIWA-Ar Total Score: 12 S Progress Note (SOAP) Subjective: c/o of interrupted sleep, chills, sweats Objective: 05/02/19 12:34 Vital Signs Temperature 98.4 F 05/02/19 09:18 Pulse Rate 76 05/02/19 09:18 Respiratory Rate 18 05/02/19 09:18 Blood Pressure 120/81 05/02/19 09:18 O2 Sat by Pulse Oximetry (%) Laboratory Last Values WBC 3.7 K/mm3 (4.0-10.0) L 05/02/19 07:00 RBC 4.14 M/mm3 (3.60-5.2) 05/02/19 07:00 Hgb 12.7 GM/dL (10.7-15.3) 05/02/19 07:00 Hct 38.1 % (32.4-45.2) 05/02/19 07:00 MCV 92.0 fl (80-96) 05/02/19 07:00 MCH 30.7 pg (25.7-33.7) 05/02/19 07:00 MCHC 33.3 g/dl (32.0-36.0) 05/02/19 07:00 RDW 13.9 % (11.6-15.6) 05/02/19 07:00 Plt Count 181 K/MM3 (134-434) 05/02/19 07:00 MPV 9.9 fl (7.5-11.1) 05/02/19 07:00 Sodium 142 mmol/L (136-145) 05/02/19 07:00 Potassium 4.2 mmol/L (3.5-5.1) 05/02/19 07:00 Chloride 111 mmol/L (98-107) H 05/02/19 07:00 Carbon Dioxide 25 mmol/L (21-32) 05/02/19 07:00 Anion Gap 6 MMOL/L (8-16) L 05/02/19 07:00 BUN 13.1 mg/dL (7-18) 05/02/19 07:00 Creatinine 0.9 mg/dL (0.55-1.3) 05/02/19 07:00 Est GFR (CKD-EPI)AfAm 92.05 05/02/19 07:00 Est GFR (CKD-EPI)NonAf 79.42 05/02/19 07:00 Random Glucose 85 mg/dL (74-106) 05/02/19 07:00 Calcium 8.6 mg/dL (8.5-10.1) 05/02/19 07:00 Total Bilirubin 0.4 mg/dL (0.2-1) 05/02/19 07:00 AST 10 U/L (15-37) L 05/02/19 07:00 ALT 13 U/L (13-61) 05/02/19 07:00 Alkaline Phosphatase 92 U/L (45-117) 05/02/19 07:00 Total Protein 6.7 g/dl (6.4-8.2) 05/02/19 07:00 Albumin 3.5 g/dl (3.4-5.0) 05/02/19 07:00 POC Urine HCG, Qual Negative 05/01/19 13:23 RPR Titer Nonreactive (NONREACTIVE) 05/02/19 07:00 HIV 1&2 Antibody Screen Negative 05/02/19 07:00 HIV P24 Antigen Negative 05/02/19 07:00 labs review Assessment: 05/02/19 12:35 Aox3 no acute distress, ambulating in the unit Plan: increase PO fluids continue detox Continue to monitor
[2019-05-02] MEDS ORDERED: cloNIDine HCL 0.1 MG TABLET PO ONE (18:15)
[2019-05-02] MEDS: THIAMINE HCL 100 MG TABLET (FP) PO SCH (22:10)
[2019-05-02] MEDS: MELATONIN 5 MG TABLETS PO PRN (22:11)
[2019-05-03] MEDS: chlordiazePOXIDE HCL 25 MG CAPSULE PO SCH ×4 (06:45→22:39)
[2019-05-03] MEDS: ALBUTEROL SO4 8 GM HFA INHALER IH SCH ×4 (06:46→22:42)
[2019-05-03] MEDS: NICOTINE 7 MG/24 HOURS TOPICAL PATCH TD SCH (10:18)
[2019-05-03] MEDS: PRENATAL VITAMINS W/ FOLIC ACID TABLET (FP) PO SCH (10:19)
[2019-05-03] MEDS ORDERED: ONDANSETRON *ODT* 4 MG TABLET SL PRN (13:26)
--- NOTE | 2019-05-03 14:10 | PN ---
S CIWA - CIWA Score Nausea/Vomitin Muscle Tremors: None Anxiety: 1-Mildly Anxious Agitation: 1-Slight > Activity Paroxysmal Sweats: No Perspiration Orientation: 0-Oriented Tacttile Disturbances: 1-Very Mild Itch/Numbness Auditory Disturbances: 0-None Visual Disturbances: 1-Very Mild Sensitivity Headache: 3-Moderate CIWA-Ar Total Score: 10 BHS Progress Note (SOAP) Subjective: Nausea, H/A, Anxious. Objective: PATIENT A & O X 3, OBSERVED AMBULATING ON UNIT UNASSISTED. IN NO ACUTE DISTRESS. 05/03/19 14:11 Vital Signs Temperature 98 F 05/03/19 13:36 Pulse Rate 90 05/03/19 13:36 Respiratory Rate 20 05/03/19 13:36 Blood Pressure 120/79 05/03/19 13:36 O2 Sat by Pulse Oximetry (%) Laboratory Tests 05/01/19 05/02/19 05/02/19 13:23 07:00 07:00 WBC 3.7 L RBC 4.14 Hgb 12.7 Hct 38.1 MCV 92.0 MCH 30.7 MCHC 33.3 RDW 13.9 Plt Count 181 MPV 9.9 Sodium Potassium Chloride Carbon Dioxide Anion Gap BUN Creatinine Est GFR (CKD-EPI)AfAm Est GFR (CKD-EPI)NonAf Random Glucose Calcium Total Bilirubin AST ALT Alkaline Phosphatase Total Protein Albumin POC Urine HCG, Qual Negative RPR Titer HIV 1&2 Antibody Screen Negative HIV P24 Antigen Negative 05/02/19 05/02/19 07:00 07:00 WBC RBC Hgb Hct MCV MCH MCHC RDW Plt Count MPV Sodium 142 Potassium 4.2 Chloride 111 H Carbon Dioxide 25 Anion Gap 6 L BUN 13.1 Creatinine 0.9 Est GFR (CKD-EPI)AfAm 92.05 Est GFR (CKD-EPI)NonAf 79.42 Random Glucose 85 Calcium 8.6 Total Bilirubin 0.4 AST 10 L ALT 13 Alkaline Phosphatase 92 Total Protein 6.7 Albumin 3.5 POC Urine HCG, Qual RPR Titer Nonreactive HIV 1&2 Antibody Screen HIV P24 Antigen LABS NOTED. Assessment: 05/03/19 14:11 WITHDRAWAL SYMPTOMS. LEUKOPENIA. 05/03/19 14:12 Plan: CONTINUE DETOX.
--- NOTE | 2019-05-03 21:03 | PN ---
B[facility] Progress Note (SOAP) Subjective: States got bit a few days ago on (R) thigh, scratched it and now notices open sore w/ pain @ "8" when touched. Objective: Open elevated lesion w/ reddish granulation tissue at mid (R) thigh approx 1 cm at center, with surrounding induration and erythema of approximately 7 cm. No discharge from open lesion. Lesion w/ increased warmth and tenderness. Vital Signs 05/03/19 05/03/19 13:36 18:00 Temperature 98 F 98.7 F Pulse Rate 90 71 Respiratory 20 18 Rate Blood Pressure 120/79 117/81 Assessment: Abscess (R) thigh. Plan: Keflex 500 mg PO QID x 10 days. Bacitracin (R) thigh abscess QID Warm wet compressed to (R) thigh q2h prn
[2019-05-03] MEDS: BACITRACIN 0.9 GM PACKET TP SCH (22:38)
[2019-05-03] MEDS: THIAMINE HCL 100 MG TABLET (FP) PO SCH (22:39)
[2019-05-03] MEDS: MELATONIN 5 MG TABLETS PO PRN (22:39)
[2019-05-03] MEDS: CEPHALEXIN MONOHYDRATE 500 MG CAPSULE (UD) PO SCH (23:01)
[2019-05-04] MEDS ORDERED: chlordiazePOXIDE HCL 10 MG CAPSULE PO PRN
[2019-05-04] MEDS: CEPHALEXIN MONOHYDRATE 500 MG CAPSULE (UD) PO SCH ×3 (05:41→17:55)
[2019-05-04] MEDS: chlordiazePOXIDE HCL 10 MG CAPSULE PO SCH ×3 (05:42→17:55)
[2019-05-04] MEDS: ALBUTEROL SO4 8 GM HFA INHALER IH SCH ×3 (08:47→16:27)
[2019-05-04] MEDS: BACITRACIN 0.9 GM PACKET TP SCH ×2 (10:10→13:33)
[2019-05-04] MEDS: NICOTINE 7 MG/24 HOURS TOPICAL PATCH TD SCH (10:59)
[2019-05-04] MEDS: PRENATAL VITAMINS W/ FOLIC ACID TABLET (FP) PO SCH (10:59)
[2019-05-04] MEDS ORDERED: DOCUSATE SODIUM 100 MG CAPSULE (FP) PO SCH (14:00)
[2019-05-04 14:04] VITALS: PULSE 85
--- NOTE | 2019-05-04 17:32 | DS ---
[facility] Detox Discharge Summary Admission Date: 05/01/19 Discharge Date: 05/04/19 - History Present History: Alcohol Dependence, Cocaine Dependence Pertinent Past History: Asthma - Physical Exam Results Vital Signs: Vital Signs Temperature 97.0 F L 05/04/19 14:01 Pulse Rate 85 05/04/19 14:01 Respiratory Rate 18 05/04/19 14:01 Blood Pressure 124/88 05/04/19 14:01 O2 Sat by Pulse Oximetry (%) Pertinent Admission Physical Exam Findings: Withdrawal sx Laboratory Last Values WBC 3.7 K/mm3 (4.0-10.0) L 05/02/19 07:00 RBC 4.14 M/mm3 (3.60-5.2) 05/02/19 07:00 Hgb 12.7 GM/dL (10.7-15.3) 05/02/19 07:00 Hct 38.1 % (32.4-45.2) 05/02/19 07:00 MCV 92.0 fl (80-96) 05/02/19 07:00 MCH 30.7 pg (25.7-33.7) 05/02/19 07:00 MCHC 33.3 g/dl (32.0-36.0) 05/02/19 07:00 RDW 13.9 % (11.6-15.6) 05/02/19 07:00 Plt Count 181 K/MM3 (134-434) 05/02/19 07:00 MPV 9.9 fl (7.5-11.1) 05/02/19 07:00 Sodium 142 mmol/L (136-145) 05/02/19 07:00 Potassium 4.2 mmol/L (3.5-5.1) 05/02/19 07:00 Chloride 111 mmol/L (98-107) H 05/02/19 07:00 Carbon Dioxide 25 mmol/L (21-32) 05/02/19 07:00 Anion Gap 6 MMOL/L (8-16) L 05/02/19 07:00 BUN 13.1 mg/dL (7-18) 05/02/19 07:00 Creatinine 0.9 mg/dL (0.55-1.3) 05/02/19 07:00 Est GFR (CKD-EPI)AfAm 92.05 05/02/19 07:00 Est GFR (CKD-EPI)NonAf 79.42 05/02/19 07:00 Random Glucose 85 mg/dL (74-106) 05/02/19 07:00 Calcium 8.6 mg/dL (8.5-10.1) 05/02/19 07:00 Total Bilirubin 0.4 mg/dL (0.2-1) 05/02/19 07:00 AST 10 U/L (15-37) L 05/02/19 07:00 ALT 13 U/L (13-61) 05/02/19 07:00 Alkaline Phosphatase 92 U/L (45-117) 05/02/19 07:00 Total Protein 6.7 g/dl (6.4-8.2) 05/02/19 07:00 Albumin 3.5 g/dl (3.4-5.0) 05/02/19 07:00 POC Urine HCG, Qual Negative 05/01/19 13:23 RPR Titer Nonreactive (NONREACTIVE) 05/02/19 07:00 HIV 1&2 Antibody Screen Negative 05/02/19 07:00 HIV P24 Antigen Negative 05/02/19 07:00 - Medication Discharge Medications: Ambulatory Orders Albuterol Sulfate Inhaler - [Ventolin Hfa Inhaler -] 1 - 2 inh PO Q4H 01/25/19 - Diagnosis (1) Alcohol dependence with uncomplicated withdrawal Current Visit: No Status: Acute (2) Asthma Current Visit: No Status: Chronic Qualifiers: Asthma severity: mild Asthma persistence: intermittent Asthma complication type: uncomplicated Qualified Code(s): J45.20 - Mild intermittent asthma, uncomplicated (3) Cocaine dependence, uncomplicated Current Visit: No Status: Chronic (4) Nicotine dependence Current Visit: No Status: Chronic Qualifiers: Nicotine product type: cigarettes Substance use status: uncomplicated Qualified Code(s): F17.210 - Nicotine dependence, cigarettes, uncomplicated - AMA Did Patient Leave Against Medical Advice: Yes
[2019-05-04 17:54] VITALS: BP 111/74; TEMP 98.9
--- NOTE | 2019-05-04 18:28 | PN ---
S CIWA - CIWA Score Nausea/Vomitin-No Nausea/No Vomiting Muscle Tremors: None Anxiety: 3 Agitation: 1-Slight > Activity Paroxysmal Sweats: No Perspiration Orientation: 0-Oriented Tacttile Disturbances: 2-Mild Itch/Numbness/Burn Auditory Disturbances: 0-None Visual Disturbances: 2-Mild Sensitivity Headache: 0-None Present CIWA-Ar Total Score: 8 BHS Progress Note (SOAP) Subjective: Anxious, Constipation. Objective: PATIENT A & O X 3, OBSERVED AMBULATING ON UNIT WITH ASSISTANCE OF A CANE. IN NO ACUTE DISTRESS. 05/04/19 18:26 Vital Signs Temperature 98.9 F 05/04/19 17:53 Pulse Rate 85 05/04/19 17:53 Respiratory Rate 17 05/04/19 17:53 Blood Pressure 111/74 05/04/19 17:53 O2 Sat by Pulse Oximetry (%) Laboratory Tests 05/01/19 05/02/19 05/02/19 13:23 07:00 07:00 WBC 3.7 L RBC 4.14 Hgb 12.7 Hct 38.1 MCV 92.0 MCH 30.7 MCHC 33.3 RDW 13.9 Plt Count 181 MPV 9.9 Sodium Potassium Chloride Carbon Dioxide Anion Gap BUN Creatinine Est GFR (CKD-EPI)AfAm Est GFR (CKD-EPI)NonAf Random Glucose Calcium Total Bilirubin AST ALT Alkaline Phosphatase Total Protein Albumin POC Urine HCG, Qual Negative RPR Titer HIV 1&2 Antibody Screen Negative HIV P24 Antigen Negative 05/02/19 05/02/19 07:00 07:00 WBC RBC Hgb Hct MCV MCH MCHC RDW Plt Count MPV Sodium 142 Potassium 4.2 Chloride 111 H Carbon Dioxide 25 Anion Gap 6 L BUN 13.1 Creatinine 0.9 Est GFR (CKD-EPI)AfAm 92.05 Est GFR (CKD-EPI)NonAf 79.42 Random Glucose 85 Calcium 8.6 Total Bilirubin 0.4 AST 10 L ALT 13 Alkaline Phosphatase 92 Total Protein 6.7 Albumin 3.5 POC Urine HCG, Qual RPR Titer Nonreactive HIV 1&2 Antibody Screen HIV P24 Antigen LABS NOTED. Assessment: 05/04/19 18:27 WITHDRAWAL SYMPTOMS. Plan: CONTINUE DETOX. INCREASE DAILY PO WATER INTAKE. COLACE PO FOR CONSTIPATION.
[2019-05-05] MEDS ORDERED: chlordiazePOXIDE HCL 10 MG CAPSULE PO SCH (05:00)
[2019-05-06] MEDS ORDERED: chlordiazePOXIDE HCL 10 MG CAPSULE PO ONE (05:00)
== END 2019-05-04 18:07 | disposition home or self-care (01) | DRG 774 ==
LOC: YASAS 10:55 → Y3N 15:12
PROVIDERS: ADMIT Surgery; ATTEND Surgery
PROC: HZ2ZZZZ Detoxification Services for Substance Abuse Treatment (ICD-10-PCS; principal; 2019-05-01)
DX: F10.230 Alcohol dependence with withdrawal, uncomplicated (principal); F14.20 Cocaine dependence, uncomplicated; F17.210 Nicotine dependence, cigarettes, uncomplicated; J45.20 Mild intermittent asthma, uncomplicated; D72.819 Decreased white blood cell count, unspecified; L02.415 Cutaneous abscess of right lower limb; Z91.013 Allergy to seafood
CPT/HCPCS: 36415; 80053; 81025; 85027; 86593; 87389; J0735